=== PATIENT | female | born 1955 | race Two or more races ===

== ENCOUNTER 2024-07-20 03:52 | Inpatient (IN) | payer OTHER, MEDICAID, MEDICARE, SELFPAY ==
[2024-07-20] VITALS (8 sets, daily range): BP systolic 100–180; BP diastolic 51–83; PULSE 94–117; RESP 16–26; TEMP -12.4–37.3; O2SAT 93–98; BMI 29.6
--- NOTE | 2024-07-20 04:09 | XR_ITS ---
Examination: CT abdomen and pelvis without contrast. Coronal 3-D reconstructions. Sagittal 2-D reconstructions. Date and time of exam:July 20, 2024 0431 hrs. Indications: Abdominal pain and nausea beginning 3 days ago CTDI: vol (mGy): 8.28 DLP: (mGycm): 431 Technique: Axial images of the abdomen have been obtained, 3 mm slice thickness Intravenous contrast material has not been administered. Low dose protocols were performed. One or more of the following dose reduction techniques were used; automated exposure control, adjustment of the mA and/or KV according to patient size, use of iterative reconstruction technique. Findings: Mildly dilated bronchi in the lower lung zones Liver is nodular in contour with fatty infiltration Absent gallbladder Spleen not enlarged Portosystemic collateral vessels medial to the spleen Suspicious for esophageal varices Small retrocardiac gastric hernia No pancreatic mass No hydronephrosis Abdominal aortic calcification no aneurysmal dilatation Abundant stool in the right colon Normal appendix No bowel obstruction Lumbar fusion L3-S1 No pelvic mass Impression: Cirrhosis Suspicious for esophageal varices
--- NOTE | 2024-07-20 04:10 | EDRME_ITS ---
<Statement entered by Ava Lopez MD - 07/20/24 19:44> As co-signing physician, I was present and available for consult prn. I concur with the plan and care as documented by the midlevel provider. Rapid Medical Screening Exam RME Arrival date/time: 07/20/24 03:52 69-year-old female with past medical history of HTN, goh-ecelegv-vstoalkmg diabetes, gastritis, chronic back pain, migraines, and coronary artery disease presents emergency department complaining of lower abdominal pain with nausea and vomiting that started 3 days ago. Chief Complaint: Abdominal Pain Time Seen by Provider: 07/20/24 04:08 Vital signs: Vital Signs Temperature 99.1 F 07/20/24 04:03 Pulse Rate 108 H 07/20/24 04:03 Respiratory Rate 97 H 07/20/24 04:03 Blood Pressure 180/83 H 07/20/24 04:03 Pulse Oximetry (%) 97 07/20/24 04:03 Oxygen Delivery Method Room Air 07/20/24 04:03 Vital signs reviewed by provider: Yes
[2024-07-20] MEDS: ONDANSETRON ODT 4 MG TABRAP PO (04:20)
[2024-07-20 04:38] LABS: Collection Type, Urine Clean Catch
[2024-07-20 05:08] LABS: Bilirubin,Urine Negative (Negative); Blood,Urine Negative (Negative); Clarity,Urine Clear (Clear/Hazy); Color,Urine Yellow (Lt Yel-Yel); Culture Indicated,Urine Not Indicated; Glucose, Urine 3+ (Negative); Ketones,Urine Negative (Negative); Leukocyte Esterase,Urine Negative (Negative); Nitrite,Urine Negative (Negative); PH,Urine 6.5 (5.0-7.0); Protein,Urine Trace (Neg - Trace); RBC,Urine 13 /hpf (0-3); Specific Gravity,Urine 1.026 (1.001-1.035); Squamous Epithelial Cell,Urine 1 /hpf (0-5); WBC,Urine 1 /hpf (0-5)
[2024-07-20 05:19] LABS: Basophils # (Auto) 0.1 Thou/mm3 (0.0-0.2); Basophils % (Auto) 0 % (0-2.5); Eosinophils % (Auto) 0 % (0-10); Hemoglobin 10.2 g/dL (12.0-16.0); Immature Granulocytes % (Auto) 0 % (0-0); Immature Granulocytes Auto 0.12 Thou/mm3 (0.00-0.00); Lymphocytes # (Auto) 3.4 Thou/mm3 (1.0-4.8); Lymphocytes % (Auto) 12 % (10-50); Mean Corpuscular HGB Conc 31.9 g/dl (31.0-37.0); Mean Corpuscular Volume 94 fL (80-100); Monocytes # (Auto) 2.1 Thou/mm3 (0.0-0.8); Monocytes % (Auto) 8 % (0-12); Neutrophils % (Auto) 79 % (37-80); Nucleated Red Blood Cell % 0 /100 WBC (0); Platelet Count 227 Thou/mm3 (140-440); RDW Standard Deviation 57.1 fL (36.4-46.3); White Blood Count 27.7 Thou/mm3 (3.6-11.0)
--- NOTE | 2024-07-20 05:27 | PRELIM_ITS ---
CT scan of the abdomen and pelvis without intravenous contrast (axial sections with sagittal and ingris nal reformats). July 20, 2024 at 0431 hoursClinical History: Abdominal pain.Comparison: No prior study is available for comparison.Findings:Patchy air-trapping in bilateral lung bases. Small gastric hiatal hernia. Status post cholecystectomy. The liver contour is nodular. The spleen, adrenal glands and pancreas are unremarkable. The kidneys are normal. No urinary tract stone or obstruction is iden tified. The urinary bladder is decompressed, limiting evaluation. There is no adnexal cyst or mass. B owel caliber is normal. The appendix is normal, best seen on image 143. The aortic atherosclerosis wi thout aneurysm. Postoperative changes in the lumbar spine. No acute osseous process. Impression: 1. P ulmonary emphysema.2. Suspect hepatic cirrhosis.3. No acute process of the abdomen or pelvis on this noncontrast exam. Report Electronically Signed By: Avel May 07/20/2024 5:27:28 AM [EST]
[2024-07-20 05:32] LABS: Alanine Aminotransferase 74 U/L (10-49); Albumin, Serum 3.9 gm/dL (3.4-4.8); Albumin/Globulin Ratio 1.7 (1.2-2.2); Alkaline Phosphatase 211 U/L (46-116); Anion Gap 7 (7-16); Aspartate Amino Transferase 93 U/L (0-34); BUN/Creatinine Ratio 27 Ratio (12-20); Bilirubin,Total 0.8 mg/dL (0.3-1.2); Blood Urea Nitrogen 19 mg/dL (9-23); Calcium 8.9 mg/dL (8.3-10.6); Carbon Dioxide 24.4 mMol/L (20.0-31.0); Chloride 107 mMol/L (98-107); Creatinine (Component) 0.7 mg/dL (0.6-1.3); Estimated Creatinine Clearance 70.2 mL/min (>60); Globulin 2.3 gm/dL (2.3-3.5); Glucose 161 mg/dL (74-106); Lipase 62 U/L (12-53); Osmolality,Calculated 280 (275-295); Potassium 3.9 mMol/L (3.4-5.1); Sodium 138 mMol/L (136-145); Total Protein 6.2 gm/dL (5.7-8.2); Troponin I < 0.020 ng/mL (0.0-0.045); eGFR > 60 See Note
[2024-07-20 05:39] LABS: B-Type Natriuretic Peptide 96 pg/mL (0-100)
[2024-07-20] MEDS: SODIUM CHLORIDE 0.9% 1000 ML 1,000 ML 999 ML IV (05:52)
--- NOTE | 2024-07-20 06:07 | PC.NURSE ---
Pt came to er with for c/o abd pain x 3 days, also c/o n/v, pt mentioned that maybe she is constipated.
--- NOTE | 2024-07-20 06:41 | XR_ITS ---
Examination: AP chest single view Technique one AP portable supine chest single view Exam date and time: July 20, 2024 0729 hrs. Comparison April 03, 2024 Indications: Shortness of breath today. Findings: Mild prominence left ventricle Moderate vascular congestion. No lobar pneumonia Impression: Moderate vascular congestion No lobar pneumonia No asia pulmonary edema
--- NOTE | 2024-07-20 06:45 | PC.NURSE ---
0644,called sepsis alert per JONNY silvestre.
[2024-07-20] MEDS: ONDANSETRON INJ 2 MG/ML INJ 2 ML 4 MG IV (06:49)
[2024-07-20] MEDS: HYDROmorphone INJ 2 MG/ML VIAL 1 MG IVP ×2 (06:49→11:00)
[2024-07-20] MEDS: PIPER/TAZO INJ 3.375 GM in SODIUM CHLORIDE 0.9% (P) 50 ML IV (06:50)
[2024-07-20 06:57] LABS: Lactate (Lactic Acid) 3.1 mMol/L (0.4-2.0)
--- NOTE | 2024-07-20 07:12 | PC.NURSE ---
Received report from Hector FULLER and assumed care of patient. Patient actively vomiting and ER provider informed. Meds ordered,
[2024-07-20] MEDS: METOCLOPRAMIDE INJ 5 MG/ML VIAL 2 ML 10 MG IVP (07:23)
[2024-07-20 07:26] LABS: Amylase 57 U/L (30-118); C-Reactive Protein 0.5 mg/dL (0.0-0.9); Magnesium 1.8 mg/dL (1.6-2.6); Procalcitonin 0.28 ng/ml (0.0-0.49)
[2024-07-20 07:45] LABS: Sed Rate (ESR) 11 mm/hr (0-30)
[2024-07-20 09:53] LABS: Reflex Lactate? Y
--- NOTE | 2024-07-20 10:43 | PC.NURSE ---
Patient states abd/lower pelvic pain 04/16. Informed ER provider and received verbal order for 1mg Hydromorphone.
[2024-07-20 10:49] LABS: Lactic Acid, 3 HR 3.7 mMol/L (0.4-2.0)
--- NOTE | 2024-07-20 11:02 | PC.NURSE ---
Patient PO2 dropped to 90% after falling asleep. Placed patient on 3L nasal canula
--- NOTE | 2024-07-20 12:03 | PC.NURSE ---
Informed by ROLLER MAN that blood was noted in stool while changing patient's brief. ER provider informed.
[2024-07-20] MEDS: metroNIDAZOLE 250 MG TABLET 500 MG PO ×2 (14:02→21:08)
[2024-07-20] MEDS: cefTRIAXone/D5w 1gm IV premix 50 ML IV (14:02)
[2024-07-20 14:35] LABS: Lactate (Lactic Acid) 3.4 mMol/L (0.4-2.0)
--- NOTE | 2024-07-20 14:41 | ESHP_ITS ---
<Statement entered by Colleen Vera MD - 08/06/24 09:26> I reviewed above note and agree with findings and plans. I have also personally examined the patient with medicine team and went over assessment and plan with medical team including corporate strategy intern and resident physician. Documentation for date of: 07/20/24 HPI History of Present Illness History of present illness: Shayy is a 69 F w. HX of HTN, DM, Gastroparesis, chronic anemia who presents with 3 days of worsening suprapubic abdominal pain. She reports constipation/N/V, however, a slightly improved appetite. She reports her stool being red while in the ED. She was hospitalized in April for anemia. She states they couldnt' find out what was wrong with her. She reports losing 45 lbs since then and hardly eating anything, mostly just crackers. She also has moderate-severe Aortic Stenosis and states that she will have a possible TAVR in September due to her SOB with her ADL's. In the ED she was hypotensive at 106/56, tachycardic at 117 otherwise normal vitals on RA. Her UA(-), on CT AP no GB, no ascites showed cirrhosis, and possible esophageal varices, no PNA on CXR, WBC 27 HGb 10 otherwise normal electrolytes, kidney function. Troponin negative. PMH: As stated above Meds: Metformin, Jardiance, metoprolol Allergies: morphine->hypotension PSH: x4, hysterectomy, lumbar fusion L3-S1 Social: Denies alcohol, drug, or tobacco use Review of systems: Constitutional: Denies fever or chills, reports 45 lb weight loss since Apr. HEENT: No neck stiffness Neuro: Reports headaches, blurry vision, numbness of whole body CV: Denies chest pain Pulm: Reports SOB : Denies dysuria GI: Reports N/V Exam Vital Signs Temp Pulse Resp BP Pulse Ox O2 Del Method O2 Flow Rate 97.2 F 107 H 18 108/56 L 97 Nasal Cannula 2 07/20/24 13:30 07/20/24 13:30 07/20/24 13:30 07/20/24 13:30 07/20/24 13:30 07/20/24 13:30 07/20/24 13:30 Narrative Exam General: Well appearing, well nourished, in no distress HEENT: Normocephalic, atraumatic, conjunctiva clear, sclera non-icteric, EOM intact Heart: Regular rate and rhythm, systolic ejection murmur Lungs: Clear to auscultation, no wheezes Abdomen: suprapubic tenderness, soft, non tender. Back: Spine normal without deformity or tenderness, no CVA tenderness, well healed incision of L3-S1 Extremities: No amputations or deformities, cyanosis, edema or varicosities, peripheral pulses intact Neurologic:Moves all extremities spontaneously, no focal neuro deficits, A&Ox3 Psychiatric: Cooperative, normal mood and affect. Results: Labs 07/20/24 14:18 07/20/24 14:18 Labs: Short CBC 07/20/24 Range/Units 05:00 WBC 27.7 H (3.6-11.0) Thou/mm3 Hgb 10.2 L (12.0-16.0) g/dL Hct 32.0 L (36.0-46.0) % Plt Count 227 (140-440) Thou/mm3 BMP 07/20/24 05:00 Sodium 138 Potassium 3.9 Chloride 107 Carbon Dioxide 24.4 BUN 19 Creatinine 0.7 Glucose 161 H Calcium 8.9 Cardiac Enzymes 07/20/24 Range/Units 05:00 Troponin I < 0.020 (0.0-0.045) ng/mL Liver Function 07/20/24 Range/Units 05:00 Total Bilirubin 0.8 (0.3-1.2) mg/dL AST 93 H (0-34) U/L ALT 74 H (10-49) U/L Alkaline Phosphatase 211 H (46-116) U/L Albumin 3.9 (3.4-4.8) gm/dL Urine 07/20/24 Range/Units 04:34 Urine Color Yellow (Lt Yel-Yel) Urine Clarity Clear (Clear/Hazy) Urine pH 6.5 (5.0-7.0) Ur Specific [place] 1.026 (1.001-1.035) Urine Protein Trace (Neg - Trace) Urine Glucose (UA) 3+ A (Negative) Quality Measures Quality Measures VTE prophylaxis Advance care planning discussed with:: patient Medications Home Medications and Allergies Home Medications ?Medication ?Instructions ?Recorded ?Confirmed ?Type empagliflozin 25 mg tablet 25 mg PO QDAY 11/17/22 05/06/24 History (Jardiance) semaglutide 0.25 mg or 0.5 mg (2 0.5 mg subcut QWEEK 11/17/22 05/06/24 History mg/1.5 mL) subcutaneous pen injector (Ozempic) metformin 1,000 mg tablet 1,000 mg PO BID 07/10/23 04/04/24 History albuterol sulfate 90 mcg/actuation 1 inh inhalation QID PRN Shortness 08/28/23 05/06/24 History aerosol inhaler Of Breath famotidine 40 mg tablet 40 mg PO QDAY 08/28/23 05/06/24 History losartan 25 mg tablet 25 mg PO QDAY 08/28/23 04/04/24 History metoprolol succinate 50 mg 50 mg PO QDAY 08/28/23 05/06/24 History tablet,extended release 24 hr sumatriptan succinate 25 mg tablet 25 mg PO Q2H PRN Migraine Headache 08/28/23 04/04/24 History calcium 600 mg (as carbonate)-vit tab PO 05/06/24 History D3 10 mcg (400 unit) chewable tablet (Calcium 600 with Vitamin D3) evolocumab 140 mg/mL subcutaneous 140 mg subcut 05/06/24 History syringe (Repatha Syringe) gabapentin 300 mg capsule 300 mg PO TID 05/06/24 05/06/24 History sertraline 25 mg tablet 25 mg PO QDAY 05/06/24 05/06/24 History tramadol 50 mg tablet 50 mg PO BID PRN Pain (Scale Score 05/06/24 05/06/24 History 4-6) Allergies Allergy/AdvReac Type Severity Reaction Status Date / Time morphine Allergy Severe SOB, LOWER Verified 04/03/24 20:51 BP Visit Medications Acetaminophen (Acetaminophen 325 Mg Tablet) 650 mg PO Q6H PRN PRN Reason: Fever >100.3 or pain Stop: 08/19/24 10:16 Ceftriaxone Sodium/Dextrose (Rocephin/D5w 1gm Iv Premix) 50 mls @ 100 mls/hr IV QDAY JULIENNE Stop: 07/27/24 13:09 Last Admin: 07/20/24 14:02 Dose: 100 mls/hr Lactulose (Lactulose Syrup 20 Gm/30 Ml Udc) 10 gm PO QDAY PRN; Protocol PRN Reason: constipation Stop: 08/20/24 08:59 Metronidazole (Metronidazole 250 Mg Tablet) 500 mg PO BID JULIENNE Stop: 07/27/24 13:14 Last Admin: 07/20/24 14:02 Dose: 500 mg Ondansetron HCl (Ondansetron Inj 2 Mg/Ml Inj 2 Ml) 4 mg IV Q6H PRN; Protocol PRN Reason: NAUSEA OR VOMITING Stop: 08/19/24 10:16 Discontinued Medications Hydromorphone HCl (Hydromorphone Inj 2 Mg/Ml Vial) 1 mg IVP X1 ONE Stop: 07/20/24 06:40 Last Admin: 07/20/24 06:49 Dose: 1 mg Hydromorphone HCl (Hydromorphone Inj 2 Mg/Ml Vial) 1 mg IVP X1 ONE Stop: 07/20/24 10:49 Last Admin: 07/20/24 11:00 Dose: 1 mg Sodium Chloride (Ns) 1,000 mls @ 999 mls/hr IV .Q1H1M ONE Stop: 07/20/24 06:46 Last Infusion: 07/20/24 06:53 Dose: Infused Piperacillin Sod/Tazobactam (Sod 3.375 gm/ Sodium Chloride) 50 mls @ 100 mls/hr IV X1 ONE Stop: 07/20/24 07:08 Last Infusion: 07/20/24 07:25 Dose: Infused Lactated Ringer's (Lactated Ringers) 500 mls @ 999 mls/hr IV .Q31M ONE Stop: 07/20/24 11:30 Last Admin: 07/20/24 13:46 Dose: Not Given Sodium Chloride (Ns) 500 mls @ 999 mls/hr IV .Q31M ONE Stop: 07/20/24 10:43 Last Admin: 07/20/24 13:46 Dose: Not Given Metoclopramide HCl (Metoclopramide Inj 5 Mg/Ml Vial 2 Ml) 10 mg IVP X1 ONE; Protocol Stop: 07/20/24 07:12 Last Admin: 07/20/24 07:23 Dose: 10 mg Ondansetron HCl (Ondansetron Odt 4 Mg Tabrap) 4 mg PO X1 ONE; Protocol Stop: 07/20/24 04:10 Last Admin: 07/20/24 04:20 Dose: 4 mg Ondansetron HCl (Ondansetron Inj 2 Mg/Ml Inj 2 Ml) 4 mg IV X1 ONE; Protocol Stop: 07/20/24 07:01 Last Admin: 07/20/24 06:49 Dose: 4 mg Assessment & Plan Plan Shayy is a 69 F w. HX of HTN, DM, Gastroparesis, chronic anemia who presents with 3 days of worsening suprapubic abdominal pain. CT AP showed cirrhosis and possible esophageal varices in setting of anemia. Dr. Leyva was consulted and requested admit for endoscopy and further workup. #Sepsis 2/2 suspected colitits #Hypotension #Tachycardia WBC 27, Tachycardic 117, Hypotensive 107/57 UA(-), No GB on CT, No ascites, No PNA on CXR, suprapubic pain on exam Although colitis wasn't seen on CT, patient has suspected blood in stool with abdominal pain Zosyn given in ED -Ceftriaxone 1gm QD IV -Flagyl 500mg BID -IVF, total of 3L given -Bowel rest #Acute on chronic normocytic anemia Hgb 10 Hx of previous EGD which showed gastritis, no active bleeding; colonscopy was limited, unable to advance scope -Dr. Leyva(gastroenterology) consulted, appreciate recommendations -Iron panel/ferritin -occult stool -Pantoprazole 40mg QD -NPO->pending EGD -Hold blood thinners #Liver Cirrhosis Cirrhosis seen on CT AP, no previous hx Denies Etoh use, no ascites on CT, Hx of elevated cholesterol and LDL in 2022, most recent in may was normal Albumin 3.6, Hgb 9.2, Platelet 192, bilirubin 0.9, AST 74, ALT 67, Alk phos 179 -PT/INR -Hepatitis panel #Hx of Gastroparesis Patient states that she has Gastroparesis. No home meds to indicate -Will advance diet as tolerated after EGD -Zofran/Reglan for N/V #Hx of DM type II A1C 05/30 4.8. Reports that she is on Metformin and Jardiance -pending med rec -SSI #Hx of Hypertension Hypotensive since admission. Reports home dose of metoprolol 50mg -continue to monitor #Hx of depression -Sertraline 25mg PO daily #Migraines -Sumatriptan at home Health Maintenance: Disp: Med/tele FEN:NPO GI:Protonix 40mg QD DVT: SCDs Lines: PIV Code: Full The patient's plan was discussed with attending Dr. Vera and senior resident Dr. Bing Perez, PGY1 Internal Medicine Senior resident attestation: Patient evaluated and examined at the bedside, plan of care discussed with rest of the team including my attending physician, except as noted. #Sepsis, unknown etiology: Noted sinus tachycardia, heart rate sustaining 110s, leukocytosis, WBC count uptrending. Follow blood cultures, continue antibiotics, #Concern for colitis: Patient complaining of lower abdominal quadrant pain, CT not reported as colitis, but abundant stool noted throughout the colon, possible colitis given clinical picture. #Acute anemia: Initial hemoglobin 10, repeat H&H 9.2 #Decompensated liver cirrhosis with varices: GI consult Dr. Leyva was added, possible EGD to evaluate for varices later today. #Concern for GI bleed: Stool occult blood ordered, type and cross. Bing PGY2
[2024-07-20 14:42] LABS: Basophils # (Auto) 0.1 Thou/mm3 (0.0-0.2); Basophils % (Auto) 0 % (0-2.5); Eosinophils % (Auto) 0 % (0-10); Hematocrit 28.7 % (36.0-46.0); Hemoglobin 9.2 g/dL (12.0-16.0); Immature Granulocytes % (Auto) 1 % (0-0); Immature Granulocytes Auto 0.23 Thou/mm3 (0.00-0.00); Lymphocytes # (Auto) 2.1 Thou/mm3 (1.0-4.8); Lymphocytes % (Auto) 7 % (10-50); Mean Corpuscular HGB Conc 32.1 g/dl (31.0-37.0); Mean Corpuscular Hemoglobin 30.3 pg (25.0-35.0); Mean Corpuscular Volume 94 fL (80-100); Monocytes # (Auto) 2.3 Thou/mm3 (0.0-0.8); Monocytes % (Auto) 7 % (0-12); Neutrophils % (Auto) 86 % (37-80); Nucleated Red Blood Cell % 0 /100 WBC (0); Platelet Count 192 Thou/mm3 (140-440); RDW Standard Deviation 58.7 fL (36.4-46.3); Red Blood Count 3.04 Miln/mm3 (4.00-5.20); White Blood Count 32.8 Thou/mm3 (3.6-11.0)
[2024-07-20 15:11] LABS: Alanine Aminotransferase 67 U/L (10-49); Albumin, Serum 3.6 gm/dL (3.4-4.8); Albumin/Globulin Ratio 1.7 (1.2-2.2); Alkaline Phosphatase 179 U/L (46-116); Anion Gap 8 (7-16); Aspartate Amino Transferase 74 U/L (0-34); BUN/Creatinine Ratio 33 Ratio (12-20); Bilirubin,Total 0.9 mg/dL (0.3-1.2); Blood Urea Nitrogen 23 mg/dL (9-23); Calcium 8.4 mg/dL (8.3-10.6); Calcium (Corrected) 8.7 mg/dL (8.5-10.1); Carbon Dioxide 22.2 mMol/L (20.0-31.0); Chloride 108 mMol/L (98-107); Creatinine (Component) 0.7 mg/dL (0.6-1.3); Estimated Creatinine Clearance 70.2 mL/min (>60); Globulin 2.1 gm/dL (2.3-3.5); Glucose 167 mg/dL (74-106); Osmolality,Calculated 283 (275-295); Potassium 4.1 mMol/L (3.4-5.1); Sodium 138 mMol/L (136-145); Total Protein 5.7 gm/dL (5.7-8.2); eGFR > 60 See Note
[2024-07-20] MEDS: PANTOPRAZOLE INJ 40 MG VIAL IV (15:50)
--- NOTE | 2024-07-20 17:07 | PC.NURSE ---
Patients will bring patients medications tomorrow.
[2024-07-20 17:33] LABS: Reflex Lactate? Y
[2024-07-20 18:04] LABS: Lactic Acid, 3 HR 1.4 mMol/L (0.4-2.0)
--- NOTE | 2024-07-20 19:11 | ESCONSULT_ITS ---
HPI Data of Consult Requesting Physician: Colleen Vera MD Primary Care Provider: Parvez Cerna MD Consult Narrative Reason for consult: Worsening pain suprapubic, leukocytosis, anemia History of present illness: 69 years old female evaluated at the request of the ER physician for pain abdomen leukocytosis Patient is suprapubic abdominal pain and discomfort and initial WBC count was 27.7 with a hemoglobin hematocrit of 10.[address] scan of the abdomen pelvis done without contrast showed absent gallbladder and cirrhosis of the liver Patient has a chronic anemia and had extensive GI workup done in March of this year when she underwent on 04/06/2020 for upper endoscopy which showed hiatal hernia gastritis and esophagitis Colonoscopy was incomplete as she has a ventral hernia and it was only got up to 40 cm from the anal verge in the region of the sigmoid and descending colon It was followed by air-contrast barium enema on 04/09/2024 no abnormalities found throughout the colon and no stricture Patient has underlying hypertension diabetes mellitus cirrhosis of the liver of unknown etiology as well as moderate to severe aortic stenosis for which she is scheduled for some sort of edema procedure in September of this year cc:: cc: Colleen Vera MD Review of Systems Review of Systems Systems Reviewed: All systems reviewed, normal except as documented Past Medical History Surgical History OTHER SURGICAL HX: Asthma history of present illness Meds Home Medications and Allergies Home Medications ?Medication ?Instructions ?Recorded ?Confirmed ?Type empagliflozin 25 mg tablet 25 mg PO QDAY 11/17/22 05/06/24 History (Jardiance) semaglutide 0.25 mg or 0.5 mg (2 0.5 mg subcut QWEEK 11/17/22 05/06/24 History mg/1.5 mL) subcutaneous pen injector (Ozempic) metformin 1,000 mg tablet 1,000 mg PO BID 07/10/23 04/04/24 History albuterol sulfate 90 mcg/actuation 1 inh inhalation QID PRN Shortness 08/28/23 05/06/24 History aerosol inhaler Of Breath famotidine 40 mg tablet 40 mg PO QDAY 08/28/23 05/06/24 History losartan 25 mg tablet 25 mg PO QDAY 08/28/23 04/04/24 History metoprolol succinate 50 mg 50 mg PO QDAY 08/28/23 07/20/24 History tablet,extended release 24 hr sumatriptan succinate 25 mg tablet 25 mg PO Q2H PRN Migraine Headache 08/28/23 04/04/24 History calcium 600 mg (as carbonate)-vit tab PO 05/06/24 History D3 10 mcg (400 unit) chewable tablet (Calcium 600 with Vitamin D3) evolocumab 140 mg/mL subcutaneous 140 mg subcut 05/06/24 History syringe (Repatha Syringe) gabapentin 300 mg capsule 300 mg PO TID 05/06/24 05/06/24 History sertraline 25 mg tablet 25 mg PO QDAY 05/06/24 05/06/24 History tramadol 50 mg tablet 50 mg PO BID PRN Pain (Scale Score 05/06/24 05/06/24 History 4-6) Allergies Allergy/AdvReac Type Severity Reaction Status Date / Time morphine Allergy Severe SOB, LOWER Verified 04/03/24 20:51 BP Exam Vital Signs Temp Pulse Resp BP Pulse Ox O2 Del Method O2 Flow Rate 97.7 F 98 18 100/58 L 97 Nasal Cannula 2 07/20/24 16:00 07/20/24 16:00 07/20/24 16:00 07/20/24 16:00 07/20/24 16:00 07/20/24 16:00 07/20/24 16:00 Constitutional Comments: Chronically ill-appearing Routine Respiratory Exam Comments: Normal to auscultation Routine Abdominal Exam Comments: Soft nontender Results Labs 07/20/24 14:18 07/20/24 14:18 Labs: Short CBC 07/20/24 07/20/24 Range/Units 05:00 14:18 WBC 27.7 H 32.8 H D (3.6-11.0) Thou/mm3 Hgb 10.2 L 9.2 L (12.0-16.0) g/dL Hct 32.0 L 28.7 L (36.0-46.0) % Plt Count 227 192 D (140-440) Thou/mm3 BMP 07/20/24 07/20/24 05:00 14:18 Sodium 138 138 Potassium 3.9 4.1 Chloride 107 108 H Carbon Dioxide 24.4 22.2 BUN 19 23 Creatinine 0.7 0.7 Glucose 161 H 167 H Calcium 8.9 8.4 Cardiac Enzymes 12/14/24 Range/Units 05:00 Troponin I < 0.020 (0.0-0.045) ng/mL Liver Function 07/20/24 07/20/24 Range/Units 05:00 14:18 Total Bilirubin 0.8 0.9 (0.3-1.2) mg/dL AST 93 H 74 H (0-34) U/L ALT 74 H 67 H (10-49) U/L Alkaline Phosphatase 211 H 179 H D (46-116) U/L Albumin 3.9 3.6 (3.4-4.8) gm/dL Urine 07/20/24 Range/Units 04:34 Urine Color Yellow (Lt Yel-Yel) Urine Clarity Clear (Clear/Hazy) Urine pH 6.5 (5.0-7.0) Ur Specific [place] 1.026 (1.001-1.035) Urine Protein Trace (Neg - Trace) Urine Glucose (UA) 3+ A (Negative) Assessment and Plan Additional Assessment & Plan Additional Plan: # Cirrhosis liver of uncertain etiology may be cryptogenic or LIC[place] cirrhosis but complete workup for the chronic active hepatitis ordered by me # Chronic anemia with full workup done in April of this year no further evaluation necessary via upper endoscopy or colonoscopy # Leukocytosis of uncertain etiology patient on broad-spectrum antibiotics at the moment # Moderate to severe aortic stenosis # Diabetes mellitus type 2 # Essential hypertension the patient presented this time with hypotension Will follow the patient
[2024-07-20 19:56] LABS: Iron 14 mcg/dL (50-170); Percent Iron Saturation 3 % (20-55); Total Iron Binding Capacity 376 mcg/dL (250-425); Unsaturated Iron Binding 362 (225-295)
[2024-07-21] VITALS (9 sets, daily range): BP systolic 99–111; BP diastolic 52–60; PULSE 80–99; RESP 16–20; TEMP 36.2–37.1; O2SAT 97–99
[2024-07-21 05:53] LABS: Basophils # (Auto) 0.1 Thou/mm3 (0.0-0.2); Basophils % (Auto) 0 % (0-2.5); Eosinophils # (Auto) 0.1 Thou/mm3 (0.0-0.5); Eosinophils % (Auto) 1 % (0-10); Hematocrit 25.7 % (36.0-46.0); Immature Granulocytes % (Auto) 1 % (0-0); Immature Granulocytes Auto 0.13 Thou/mm3 (0.00-0.00); Lymphocytes # (Auto) 2.8 Thou/mm3 (1.0-4.8); Lymphocytes % (Auto) 14 % (10-50); Mean Corpuscular HGB Conc 31.1 g/dl (31.0-37.0); Mean Corpuscular Hemoglobin 29.6 pg (25.0-35.0); Mean Corpuscular Volume 95 fL (80-100); Monocytes # (Auto) 1.2 Thou/mm3 (0.0-0.8); Monocytes % (Auto) 6 % (0-12); Neutrophils # (Auto) 15.2 Thou/mm3 (1.8-7.7); Neutrophils % (Auto) 78 % (37-80); Nucleated Red Blood Cell % 0 /100 WBC (0); Platelet Count 147 Thou/mm3 (140-440); RDW Standard Deviation 58.8 fL (36.4-46.3); White Blood Count 19.4 Thou/mm3 (3.6-11.0)
[2024-07-21 06:15] LABS: Alanine Aminotransferase 57 U/L (10-49); Albumin, Serum 3.3 gm/dL (3.4-4.8); Albumin/Globulin Ratio 1.5 (1.2-2.2); Alkaline Phosphatase 166 U/L (46-116); Anion Gap 7 (7-16); Aspartate Amino Transferase 47 U/L (0-34); BUN/Creatinine Ratio 32 Ratio (12-20); Bilirubin,Total 0.6 mg/dL (0.3-1.2); Blood Urea Nitrogen 19 mg/dL (9-23); Calcium 8.3 mg/dL (8.3-10.6); Calcium (Corrected) 8.9 mg/dL (8.5-10.1); Carbon Dioxide 25.5 mMol/L (20.0-31.0); Chloride 108 mMol/L (98-107); Creatinine (Component) 0.6 mg/dL (0.6-1.3); Estimated Creatinine Clearance 81.9 mL/min (>60); Globulin 2.2 gm/dL (2.3-3.5); Glucose 120 mg/dL (74-106); Magnesium 2.1 mg/dL (1.6-2.6); Osmolality,Calculated 282 (275-295); Phosphorous 3.4 mg/dL (2.4-5.1); Potassium 4.1 mMol/L (3.4-5.1); Sodium 140 mMol/L (136-145); Total Protein 5.5 gm/dL (5.7-8.2); eGFR > 60 See Note
[2024-07-21 06:19] LABS: Ferritin 41 ng/mL (7.3-270.7); Iron 19 mcg/dL (50-170); Percent Iron Saturation 5 % (20-55); Total Iron Binding Capacity 363 mcg/dL (250-425); Unsaturated Iron Binding 344 (225-295)
[2024-07-21] MEDS: PANTOPRAZOLE INJ 40 MG VIAL IV (09:27)
[2024-07-21] MEDS: metroNIDAZOLE 250 MG TABLET 500 MG PO ×2 (09:29→20:05)
[2024-07-21] MEDS: cefTRIAXone/D5w 1gm IV premix 50 ML IV (09:30)
[2024-07-21 11:26] LABS: INR 1.2 (0.9-1.3); Partial Thromboplastin Time 27.1 Seconds (22.0-36.0); Prothrombin Time 12.6 Seconds (9.0-12.2)
--- NOTE | 2024-07-21 11:36 | PC.SS ---
Shayy Lincoln is 69-year-old female admitted to Med-Surg for Sepsis. SS conducted bedside contact with the patient to complete initial assessment and to discuss discharge planning. Patient confirmed demographic information. Patient identifies her Luis M Lincoln [phone] as her surrogate decision maker. Patient resides at home with her . Pt states she has been unable to complete all ADL?s independently; pts has been helping her with supervision due to recent fall. Pts PCP is Dr. Parvez Cerna and her pharmacy of choice is [facility] [address]. The pt?s plan is to DC with Home Health due to her recent decline in mobility. There is no preference for Home Health. Pts will provide transportation upon DC. No further intervention required at this time, social work instructor would be available to address any further concerns. DC Plan: Home w/ HH Contact: Luis M Lincoln [phone] PCP: Parvez Cerna (last visit 07/19/24)
--- NOTE | 2024-07-21 11:56 | ESPR_ITS ---
<Statement entered by Colleen Vera MD - 08/06/24 09:27> I reviewed above note and agree with findings and plans. I have also personally examined the patient with medicine team and went over assessment and plan with medical team including internet sales director and resident physician. Documentation for date of: 07/21/24 Subjective Subjective Interval history: No acute events overnight. She denies N/V. No bowel movement overnight. She reports her abdomen feels sore but not sharp pain. She states that she tried to get oxygen but didn't qualify before because she had normal O2 saturation while sitting even though she was hypoxic with activity. Exam Vital Signs Temp Pulse Resp BP Pulse Ox O2 Del Method O2 Flow Rate 97.1 F 99 16 99/52 L 97 Nasal Cannula 2 07/21/24 07:38 07/21/24 08:00 07/21/24 07:38 07/21/24 07:38 07/21/24 07:38 07/21/24 07:38 07/21/24 07:38 Narrative Exam General: Well appearing, well nourished, in no distress HEENT: Normocephalic, atraumatic, conjunctiva clear, sclera non-icteric, EOM intact Heart: Regular rate and rhythm, systolic ejection murmur Lungs: Clear to auscultation, no wheezes Abdomen: suprapubic tenderness, soft, non tender. Extremities: No amputations or deformities, cyanosis, edema or varicosities, peripheral pulses intact Neurologic:Moves all extremities spontaneously, no focal neuro deficits, A&Ox3 Psychiatric: Cooperative, normal mood and affect. Objective Labs 07/22/24 05:32 07/22/24 05:32 Labs: Laboratory Results - last 24 hr 07/20/24 07/20/24 07/21/24 14:18 17:50 05:20 WBC 32.8 H D 19.4 H D RBC 3.04 L 2.70 L Hgb 9.2 L 8.0 L Hct 28.7 L 25.7 L MCV 94 95 MCH 30.3 29.6 MCHC 32.1 31.1 RDW Std Deviation 58.7 H 58.8 H Plt Count 192 D 147 D Neut % (Auto) 86 H 78 Lymph % (Auto) 7 L 14 Green % (Auto) 7 6 Eos % (Auto) 0 1 Baso % (Auto) 0 0 Neut # (Auto) 28.0 H 15.2 H Lymph # (Auto) 2.1 2.8 Green # (Auto) 2.3 H 1.2 H Eos # (Auto) 0.0 0.1 Baso # (Auto) 0.1 0.1 Immature Gran # (Auto) 0.23 H 0.13 H Absolute Nucleated RBC 0.00 0.00 Immature Gran % 1 H 1 H Nucleated RBC % 0 0 PT 12.6 H INR 1.2 APTT 27.1 Sodium 138 140 Potassium 4.1 4.1 Chloride 108 H 108 H Carbon Dioxide 22.2 25.5 Anion Gap 8 7 BUN 23 19 Creatinine 0.7 0.6 Estim Creat Clear Calc 70.2 81.9 eGFR > 60 > 60 BUN/Creatinine Ratio 33 H 32 H Glucose 167 H 120 H Calculated Osmolality 283 282 Lactic Acid 3.4 H 1.4 Calcium 8.4 8.3 Corrected Calcium 8.7 8.9 Phosphorus 3.4 Magnesium 2.1 Iron 14 L 19 L TIBC 376 363 Iron Saturation 3 L 5 L Unsat Iron Binding 362 H 344 H Ferritin 41 Total Bilirubin 0.9 0.6 AST 74 H 47 H ALT 67 H 57 H Alkaline Phosphatase 179 H D 166 H Total Protein 5.7 5.5 L Albumin 3.6 3.3 L Globulin 2.1 L 2.2 L Albumin/Globulin Ratio 1.7 1.5 Blood Type B Positive Antibody Screen NEGATIVE Blood Bank Wristband ID Yes Quality Measures Quality Measures VTE prophylaxis Advance care planning discussed with:: patient Assessment & Plan Assessment Current Active Medications: Generic Name Dose Route Start Last Admin Trade Name Freq PRN Reason Stop Dose Admin Acetaminophen 650 mg 07/20/24 10:17 Acetaminophen 325 Mg Tablet PO 08/19/24 10:16 Q6H PRN Fever >100.3 or pain Ceftriaxone Sodium/Dextrose 50 mls @ 100 mls/hr 07/20/24 13:10 07/21/24 09:30 Rocephin/D5w 1gm Iv Premix IV 07/27/24 13:09 100 mls/hr QDAY JULIENNE Administration Lactulose 10 gm 07/20/24 10:17 Lactulose Syrup 20 Gm/30 Ml Udc PO 08/20/24 08:59 QDAY PRN constipation Protocol Metoclopramide HCl 10 mg 07/20/24 15:18 Metoclopramide Inj 5 Mg/Ml Vial 2 Ml IVP 08/19/24 15:17 Q6HR PRN NAUSEA OR VOMITING Protocol Metronidazole 500 mg 07/20/24 13:15 07/21/24 09:29 Metronidazole 250 Mg Tablet PO 07/27/24 13:14 500 mg BID JULIENNE Administration Ondansetron HCl 4 mg 07/20/24 15:23 Ondansetron Inj 2 Mg/Ml Inj 2 Ml IV 08/19/24 10:16 Q6H PRN NAUSEA OR VOMITING Protocol Pantoprazole Sodium 40 mg 07/20/24 15:15 07/21/24 09:27 Pantoprazole Inj 40 Mg Vial IV 08/19/24 15:14 40 mg QDAY JULIENNE Administration Plan Shayy is a 69 F w. HX of HTN, DM, Gastroparesis, chronic anemia who presents with 3 days of worsening suprapubic abdominal pain. CT AP showed cirrhosis and possible esophageal varices in setting of anemia. Dr. Leyva was consulted. Full GI workup was performed in April. Dr. Leyva recommends defering endoscopy/colonoscopy at this time. Will continue to treat bacterial colitis. #Acute on chronic normocytic anemia #Iron deficiency anemia Hgb 8 Hx of previous EGD which showed gastritis, no active bleeding; colonscopy was limited, unable to advance scope, however barium enema didn't show abnormalities. +occult stool, Low iron, High TIBC -Dr. Leyva(gastroenterology) consulted, appreciate recommendations -Ferrous Sulfate 325 PO QD -Pantoprazole 40mg QD -Hold blood thinners #Sepsis 2/2 suspected colitits #Hypotension #Tachycardia WBC 27, Tachycardic 117, Hypotensive 107/57 UA(-), No GB on CT, No ascites, No PNA on CXR, suprapubic pain on exam + occult blood in stool Zosyn given in ED -Ceftriaxone 1gm QD IV -Flagyl 500mg BID -IVF, total of 3L given -CLD #Liver Cirrhosis Cirrhosis seen on CT AP, no previous hx; possibly cryptogenic or LICONA Denies Etoh use, no ascites on CT, Hx of elevated cholesterol and LDL in 2022, most recent in may was normal Albumin 3.6, Hgb 9.2, Platelet 192, bilirubin 0.9, AST 74, ALT 67, Alk phos 179 -Pending Hepatitis panel, ceruloplasmin, STEPHANIE, Alpha 1, AFP, copper, AMA #Hx of Gastroparesis Patient states that she has Gastroparesis. No home meds to indicate -Will advance diet as tolerated after EGD -Zofran/Reglan for N/V #Hx of DM type II A1C 05/30 4.8. Reports that she is on Metformin and Jardiance -pending med rec -SSI #Hx of Hypertension Hypotensive since admission. Reports home dose of metoprolol 50mg -continue to monitor #Hx of depression -Sertraline 25mg PO daily #Migraines -Sumatriptan at home Health Maintenance: Disp: Med/tele FEN:CLD GI:Protonix 40mg QD DVT: SCDs Lines: PIV Code: Full The patient's plan was discussed with attending Dr. Vera and senior resident Dr. Bing Perez, DO PGY1 Internal Medicine Senior resident attestation: Patient evaluated and examined at the bedside, plan of care discussed with rest of the team including my attending physician, except as noted. #Sepsis, unknown etiology: Noted sinus tachycardia, heart rate sustaining 110s, leukocytosis, WBC count uptrending. Follow blood cultures, continue antibiotics, #Concern for colitis: Patient complaining of lower abdominal quadrant pain, CT not reported as colitis, but abundant stool noted throughout the colon, possible colitis given clinical picture. #Acute anemia: Initial hemoglobin 10, repeat H&H 9.2 #Decompensated liver cirrhosis with varices: GI consult Dr. Leyva was added, per gastroenterology, patient had extensive workup for GI bleed a few months ago, incomplete colonoscopy due to inability to pass colonoscope passed a ventral hernia, EGD was done. Per GI, ordered labs for workup of cirrhosis. Patient is HCV positive, possible hepatitis C leading to decompensated cirrhosis. #GI bleed: Stool occult blood was positive, type and cross. Bing PGY2
[2024-07-21] MEDS: FERROUS SULF 325 MG TABLET PO (14:05)
--- NOTE | 2024-07-21 14:08 | PC.NURSE ---
Per MD orders pt ambulated around unit, 02 maintained at 95%-96% HR 105-110 pt was feeling short of breath
--- NOTE | 2024-07-21 16:10 | PC.SS ---
Rounding: on IV ABX poss DC 07/22
--- NOTE | 2024-07-21 16:13 | ESPR_ITS ---
Documentation for date of: 07/21/24 Subjective Subjective Interval history: WBC count down to 19.4 from 32.4 Hemoglobin hematocrit 8.0 and 25.7 Tolerating clear liquid diet Advance to 2 g sodium diet Exam Vital Signs Temp Pulse Resp BP Pulse Ox O2 Del Method O2 Flow Rate 97.7 F 91 16 111/60 99 Room Air 2 07/21/24 16:00 07/21/24 16:00 07/21/24 16:00 07/21/24 16:00 07/21/24 16:00 07/21/24 16:00 07/21/24 07:38 Constitutional Comments: Alert oriented Routine Respiratory Exam Comments: Normal to auscultation Routine Abdominal Exam Comments: Soft nontender Objective Labs 07/21/24 05:20 07/21/24 05:20 Labs: Laboratory Results - last 24 hr 07/20/24 07/21/24 17:50 05:20 WBC 19.4 H D RBC 2.70 L Hgb 8.0 L Hct 25.7 L MCV 95 MCH 29.6 MCHC 31.1 RDW Std Deviation 58.8 H Plt Count 147 D Neut % (Auto) 78 Lymph % (Auto) 14 [place] % (Auto) 6 Eos % (Auto) 1 Baso % (Auto) 0 Neut # (Auto) 15.2 H Lymph # (Auto) 2.8 [place] # (Auto) 1.2 H Eos # (Auto) 0.1 Baso # (Auto) 0.1 Immature Gran # (Auto) 0.13 H Absolute Nucleated RBC 0.00 Immature Gran % 1 H Nucleated RBC % 0 PT 12.6 H INR 1.2 APTT 27.1 Sodium 140 Potassium 4.1 Chloride 108 H Carbon Dioxide 25.5 Anion Gap 7 BUN 19 Creatinine 0.6 Estim Creat Clear Calc 81.9 eGFR > 60 BUN/Creatinine Ratio 32 H Glucose 120 H Calculated Osmolality 282 Lactic Acid 1.4 Calcium 8.3 Corrected Calcium 8.9 Phosphorus 3.4 Magnesium 2.1 Iron 14 L 19 L TIBC 376 363 Iron Saturation 3 L 5 L Unsat Iron Binding 362 H 344 H Ferritin 41 Total Bilirubin 0.6 AST 47 H ALT 57 H Alkaline Phosphatase 166 H Total Protein 5.5 L Albumin 3.3 L Globulin 2.2 L Albumin/Globulin Ratio 1.5 Impressions Impression: # Anemia blood loss # Pain abdomen # Improving leukocytosis Advance diet Assessment & Plan A&P Narrative # Cirrhosis liver of uncertain etiology may be cryptogenic or LICONA cirrhosis but complete workup for the chronic active hepatitis ordered by me # Chronic anemia with full workup done in April of this year no further evaluation necessary via upper endoscopy or colonoscopy # Leukocytosis of uncertain etiology patient on broad-spectrum antibiotics at the moment # Moderate to severe aortic stenosis # Diabetes mellitus type 2 # Essential hypertension the patient presented this time with hypotension Will follow the patient Time Spent With Patient Time: Total time spent is greater than 50% in coordination of care (as documented) at patient's floor/unit and/or counseling patient:
[2024-07-22] VITALS (7 sets, daily range): BP systolic 113–130; BP diastolic 62–72; PULSE 77–93; RESP 16–18; TEMP 36.3–36.8; O2SAT 95–99
[2024-07-22 03:59] LABS: Hepatitis A Antibody IgM Non Reactive (Non React); Hepatitis B Core Antibody IgM Non Reactive (Non React); Hepatitis B Surface Antigen Non Reactive (Non React); Hepatitis C Antibody Reactive (Non React)
[2024-07-22 04:04] LABS: Hepatitis A Antibody IgM Non Reactive (Non React); Hepatitis B Core Antibody IgM Non Reactive (Non React); Hepatitis B Surface Antigen Non Reactive (Non React); Hepatitis C Antibody Reactive (Non React)
[2024-07-22 06:27] LABS: Basophils # (Auto) 0.1 Thou/mm3 (0.0-0.2); Basophils % (Auto) 0 % (0-2.5); Eosinophils # (Auto) 0.1 Thou/mm3 (0.0-0.5); Eosinophils % (Auto) 0 % (0-10); Hematocrit 27.2 % (36.0-46.0); Immature Granulocytes % (Auto) 0 % (0-0); Immature Granulocytes Auto 0.06 Thou/mm3 (0.00-0.00); Lymphocytes # (Auto) 2.7 Thou/mm3 (1.0-4.8); Lymphocytes % (Auto) 18 % (10-50); Mean Corpuscular HGB Conc 31.3 g/dl (31.0-37.0); Mean Corpuscular Hemoglobin 29.7 pg (25.0-35.0); Mean Corpuscular Volume 95 fL (80-100); Monocytes % (Auto) 7 % (0-12); Neutrophils % (Auto) 74 % (37-80); Nucleated Red Blood Cell % 0 /100 WBC (0); Platelet Count 162 Thou/mm3 (140-440); RDW Standard Deviation 55.8 fL (36.4-46.3); Red Blood Count 2.86 Miln/mm3 (4.00-5.20); White Blood Count 14.8 Thou/mm3 (3.6-11.0)
[2024-07-22 06:36] LABS: Hemoglobin 8.5 g/dL (12.0-16.0)
[2024-07-22 06:46] LABS: Alanine Aminotransferase 52 U/L (10-49); Albumin, Serum 3.5 gm/dL (3.4-4.8); Albumin/Globulin Ratio 1.3 (1.2-2.2); Alkaline Phosphatase 184 U/L (46-116); Anion Gap 9 (7-16); Aspartate Amino Transferase 43 U/L (0-34); BUN/Creatinine Ratio 20 Ratio (12-20); Bilirubin,Total 0.5 mg/dL (0.3-1.2); Blood Urea Nitrogen 10 mg/dL (9-23); Calcium 9.2 mg/dL (8.3-10.6); Calcium (Corrected) 9.6 mg/dL (8.5-10.1); Carbon Dioxide 27.3 mMol/L (20.0-31.0); Chloride 105 mMol/L (98-107); Creatinine (Component) 0.5 mg/dL (0.6-1.3); Estimated Creatinine Clearance 98.3 mL/min (>60); Globulin 2.6 gm/dL (2.3-3.5); Glucose 121 mg/dL (74-106); Osmolality,Calculated 281 (275-295); Sodium 141 mMol/L (136-145); Total Protein 6.1 gm/dL (5.7-8.2); eGFR > 60 See Note
[2024-07-22] MEDS: LACTULOSE SYRUP 20 GM/30 ML UDC PO (09:58)
[2024-07-22] MEDS: metroNIDAZOLE 250 MG TABLET 500 MG PO (09:58)
[2024-07-22] MEDS: PANTOPRAZOLE INJ 40 MG VIAL IV (09:58)
[2024-07-22] MEDS: cefTRIAXone/D5w 1gm IV premix 50 ML IV (09:58)
--- NOTE | 2024-07-22 11:13 | PC.NURSE ---
PATIENT WAS TOLD SHE IS HEPATITIS C POSITIVE. PATIENT IS VERY CONCERNED AND ASKING ABOUT TREATMENT AND PRECAUTIONS WITH FAMILY. PATIENT ALSO HAS A DISCHARGE ORDER. DR RODGERS CALLED AND INFORMED OF PATIENTS CONCERNS AND ASKED IF SOME ONE CAN COME AND TALK TO HER ABOUT IT. STATED WILL COME TO SEE HER.
--- NOTE | 2024-07-22 12:27 | PC.SS ---
SS met with pt who states she does not have preference for HH. Pt states followed up last week with her PCP, Dr. Rosenda Cerna.
--- NOTE | 2024-07-22 14:10 | PC.NURSE ---
DR RODGERS CALLED, PATIENT HAS NOT BEEN SEEN AND CONCERNS ADDRESSED. INFORMED D/C ORDER PLACED THIS MORNING, IS SHE TO BE D/C? [id number] DR KEEN SAW PATIENT, PT CAN BE DISCHARGE.
--- NOTE | 2024-07-22 14:47 | PC.NURSE ---
PATIENT EXPRESSED THIS AM THAT SHE HAS HAD NOSE BLEEDS AND ACTUALLY HAS COUGHED UP BLOOD CLOTS. THIS STARTED ABOUT 2 WEEKS AGO. WENT TO TELL PATIENT SHE MAY GET READY FOR D/C. PPPATIENT HAD ALREADY GOTTEN UP AND DRESSED. PATIENT MOTIONED TO ME TO SEE THAT SHE HAS A NOSE BLEED PRESENTLY. DR KEEN CALLED AND ASKED IF THE TEAM IS AWARE OF HER COMPLAINT OF NOSE BLEEDS AND COUGHING UP LARGE BLOOD CLOTS. WANTED TO VERIFY THEY WERE AWARE BEFORE DISCHARGING HER. DR ASKED IS HE BLEEDING RIGHT NOW INFORMED YES. STATED TO WAIT AND WOULD CALL BACK.
--- NOTE | 2024-07-22 15:37 | ESDS_ITS ---
<Statement entered by Colleen Vera MD - 08/06/24 09:38> I reviewed above note and agree with findings and plans. I have also personally examined the patient with medicine team and went over assessment and plan with medical team including wireless internet installer and resident physician. <Statement entered by Alejandrina Castro MD - 07/22/24 17:37> Patient was seen and examined at bedside. She reported that she had some episodes of nosebleed that sometimes she can feel that her down throat. She denied any trauma she denied using any nasal sprays except normal saline nasal sprays. Patient denied any weakness or dizziness, denied any headache. We informed the patient that her bleeding must be addressed with the ENT specialist which we do not have available here in the facility. Instructed the patient to follow-up as soon as possible with her primary care physician for referral. At this time her hemoglobin is stable at 8.5, culture and sensitivity are negative and her coagulation panel within normal limits. Will discharge the patient on ciprofloxacin and Flagyl and to follow-up with the GI specialist Dr. Leyva on outpatient settings for autoimmune workup and also to follow-up with her hepatitis C treatment plan with her flex o writer operator and PCP. The patient will be given iron supplements on discharge. - Patient's plan and care discussed with my attending, Dr. Chuy Castro MD Internal Medicine PGY-2 Planned Discharge Date 07/22/24 DS: Providers Provider Date of admission: 07/20/24 10:11 Primary care physician: Parvez Cerna MD Admitting Provider: Colleen Vera MD Attending Provider on Admission: Colleen Vera MD Consults: 07/20/24 09:07 Consult to Gastroenterology Stat Comment: Cirrhosis and Varices Consulting Provider: Tasha Leyva Attending Provider on DC: Colleen Vera MD Discharging Provider: Colleen Vera MD DS: Diagnosis Problem List Completed Was Problem List Reviewed/Reconciled?: Yes Hospital Course Hospital Course Hospital course: 69 y/o female with PMHx of HTN, DM, gastroparesis, chronic anemia who is admitted for colitis and evaluation of acute on chronic normocytic anemia. Patient had come into the ED for evaluation of abdominal pain and had stated her stool had been red prior to arrival. Patient arrived to the ED with a blood pressure of 106/56, heart rate of 117. Her urinalysis was negative. CT abdomen pelvis showed no gallbladder no ascites, however showed cirrhosis and possible esophageal varices. Chest x-ray showed no PNA, however her WBC was 27 and HGb was 10 otherwise normal electrolytes, kidney function, and negative troponin. Medicine was consulted and patient was admitted to floors. While on the floors GI was consulted for patient, Dr. Leyva, and had recommended to defer EGD and colonoscopy at the time and to follow-up outpatient as she got full workup in April. Patient also had hepatitis panel done which she had hepatitis C positive antibody. It was repeated once more had showed hepatitis C antibody. Patient was recommended to follow-up outpatient on further workup of hepatitis C, patient denied any fingerstick injuries, tattoos, drug use but did says she got a blood transfusion prior. There was a concern for sepsis at once patient came in and concern for colitis as patient had been experiencing diarrhea. Sepsis was ruled out, however as there was some suspicion for possible C. difficile, we did not run the test because of no recent hospitalizations, or antibiotic use. On discharge we will still treat for colitis, with Cipro and Flagyl which would cover patient if patient were to have symptoms. Patient had experienced a nosebleed while in the floors, and had stopped. Patient did endorse a history of previous nosebleeds, says she has not been able to see an ENT, we recommended her to follow-up with the ENT upon discharge. Patient was recommended to follow-up outpatient with her PCP within 1 week as well upon discharge. Follow up with your PCP within one week from discharge Follow up with your PCP in regards to your Hepatitis C results Follow up with your Gastroenterologiest within one week from discharge Use medications as prescribed In case of worsening of your symptoms please return to the ED as soon as possible Follow up with an ENT doctor to address your nose bleeding #Hepatitis C positive antibody #Chronic diarrhea of unknown source #Epistaxis #Acute on chronic normocytic anemia #Iron deficiency anemia #Sepsis 2/2 suspected colitits, ruled out #Hypotension #Tachycardia #Liver Cirrhosis #Hx of Gastroparesis #Hx of DM type II #Hx of Hypertension #Hx of depression #Migraines Patient seen and care discussed with my senior resident, Dr. Castro , and my attending physician, Dr. Chuy Hernandez, PGY-1 Time Spent with Patient Time attestation: Total time spent providing and/or coordinating discharge services: Time spent: Greater than 30 minutes Exam Vital Signs Temp Pulse Resp BP Pulse Ox O2 Del Method O2 Flow Rate 97.5 F 81 16 129/72 98 Room Air 2 07/22/24 12:00 07/22/24 12:00 07/22/24 12:00 07/22/24 12:00 07/22/24 12:00 07/22/24 12:00 07/22/24 04:00 Narrative Exam General: Well appearing, well nourished, in no distress HEENT: Normocephalic, atraumatic, conjunctiva clear, sclera non-icteric, EOM intact Heart: Regular rate and rhythm, systolic ejection murmur Lungs: Clear to auscultation, no wheezes Abdomen: suprapubic tenderness, soft, non tender. Extremities: No amputations or deformities, cyanosis, edema or varicosities, peripheral pulses intact Neurologic:Moves all extremities spontaneously, no focal neuro deficits, A&Ox3 Psychiatric: Cooperative, normal mood and affect. Discharge Plan Plan Patient Disposition: HOME (Self Care) Care Plan Goals: Follow up with your PCP within one week from discharge Follow up with your PCP in regards to your Hepatitis C results Follow up with your Gastroenterologiest within one week from discharge Use medications as prescribed In case of worsening of your symptoms please return to the ED as soon as possible Follow up with an ENT doctor to address your nose bleeding Prescriptions/Referrals Prescriptions/Med Rec: New ferrous sulfate 325 mg (65 mg iron) Tablet,Delayed Release (Dr/Ec) 325 mg PO QOD 14 Days Qty: 7 0RF metronidazole 500 mg tablet 500 mg PO TID 5 Days Qty: 15 0RF ciprofloxacin HCl 500 mg tablet 500 mg PO BID 5 Days Qty: 10 0RF Continued metoprolol succinate 50 mg Tablet Extended Release 24 Hr 50 mg PO QDAY sumatriptan succinate 25 mg Tablet 25 mg PO Q2H PRN (Reason: Migraine Headache) Rx Instructions: do not exceed 8 doses per 24 hrs losartan 25 mg Tablet 25 mg PO QDAY albuterol sulfate 90 mcg/actuation Hfa Aerosol Inhaler 1 inh INHALATION QID PRN (Reason: Shortness Of Breath) docusate sodium [Colace] 100 mg capsule 100 mg PO BID Qty: 40 0RF furosemide [Lasix] 40 mg tablet 40 mg PO QDAY Qty: 30 0RF gabapentin 300 mg Capsule 300 mg PO DAILY sertraline 25 mg Tablet 25 mg PO QDAY Calcium 600 with Vitamin D3 600 mg-10 mcg (400 unit) Tablet,Chewable 600 tab PO BIDWMEAL Repatha Syringe 140 mg/mL Syringe 140 mg SUBCUT Jardiance 25 mg tablet 25 mg PO QDAY Patient Comments: TOME ZACKERY TABLETA POR V A ORAL CADA MA STEPHANIE Ozempic 0.25 mg or 0.5 mg(2 mg/1.5 mL) pen injector 0.5 mg SUBCUT QWEEK Patient Comments: INJECT 0.5MG UNDER THE SKIN ONCE A WEEK metformin 1,000 mg Tablet 1,000 mg PO QDAY Hold Instructions: Resume on 05/08/24. Empieze a to mar maximus medicamento nuevamente en maximus sarai a matthew hora habitual. Held famotidine 40 mg Tablet 40 mg PO QDAY Hold Instructions: Resume on 07/29/24. Referrals: Parvez Cerna MD [Primary Care Provider] - Patient/Caregiver Discharge Instructions Discharge Activity: activity as tolerated Education Materials: Abdominal Pain, Understanding Hepatitis C (HCV), Treating Hepatitis C (HCV), Anatomy of the Digestive System, Sepsis, What to Know About Hepatitis C ..., Hepatitis C: Preventing the Spread, Hepatitis C: Protecting Your Liver, Hepatitis C: Know the Facts, Understanding Colitis Print Language: Irish Stand Alone Forms: Ramona Award Info., Patient Portal Info Letter Discharge Order Discharge Orders: Discharge (Routine); Ordered 07/22/24 Ordered By: Mora Hernandez Quality Discharge Quality Measures VTE prophylaxis (SCDs)
--- NOTE | 2024-07-22 18:36 | PD.IMPROG ---
Documentation for date of: 07/22/24 Subjective Subjective Interval history: Late entry for the note Patient evaluated Okay to discharge patient home as a hemoglobin hematocrit stabilized on 8.5 and 27.2 No need for invasive GI workup Improving leukocytosis Exam Vital Signs Temp Pulse Resp BP Pulse Ox O2 Del Method O2 Flow Rate 98.2 F 93 17 124/66 95 Room Air 2 07/22/24 16:00 07/22/24 16:00 07/22/24 16:00 07/22/24 16:00 07/22/24 16:00 07/22/24 16:00 07/22/24 04:00 Objective Labs 07/22/24 05:32 07/22/24 05:32 Labs: Laboratory Results - last 24 hr 07/20/24 07/21/24 07/22/24 17:50 05:20 05:32 WBC 14.8 H RBC 2.86 L Hgb 8.5 L Hct 27.2 L MCV 95 MCH 29.7 MCHC 31.3 RDW Std Deviation 55.8 H Plt Count 162 Neut % (Auto) 74 Lymph % (Auto) 18 [place] % (Auto) 7 Eos % (Auto) 0 Baso % (Auto) 0 Neut # (Auto) 11.0 H Lymph # (Auto) 2.7 [place] # (Auto) 1.0 H Eos # (Auto) 0.1 Baso # (Auto) 0.1 Immature Gran # (Auto) 0.06 H Absolute Nucleated RBC 0.00 Immature Gran % 0 Nucleated RBC % 0 Sodium 141 Potassium 4.0 Chloride 105 Carbon Dioxide 27.3 Anion Gap 9 BUN 10 Creatinine 0.5 L Estim Creat Clear Calc 98.3 eGFR > 60 BUN/Creatinine Ratio 20 Glucose 121 H Calculated Osmolality 281 Calcium 9.2 Corrected Calcium 9.6 Total Bilirubin 0.5 AST 43 H ALT 52 H Alkaline Phosphatase 184 H Total Protein 6.1 Albumin 3.5 Globulin 2.6 Albumin/Globulin Ratio 1.3 Tumor Marker AFP 4.20 Hepatitis A IgM Ab Non Reactive Non Reactive Hep Bs Antigen Non Reactive Non Reactive Hep B Core IgM Ab Non Reactive Non Reactive Hepatitis C Antibody Reactive A Reactive A Impressions Impression: # Anemia blood loss stable at the moment # Leukocytosis improving Okay to be discharged patient home She can be followed by the PCP Assessment & Plan A&P Narrative # Cirrhosis liver of uncertain etiology may be cryptogenic or LICONA cirrhosis but complete workup for the chronic active hepatitis ordered by me # Chronic anemia with full workup done in April of this year no further evaluation necessary via upper endoscopy or colonoscopy # Leukocytosis of uncertain etiology patient on broad-spectrum antibiotics at the moment # Moderate to severe aortic stenosis # Diabetes mellitus type 2 # Essential hypertension the patient presented this time with hypotension Will follow the patient Time Spent With Patient Time: Total time spent is greater than 50% in coordination of care (as documented) at patient's floor/unit and/or counseling patient:
[2024-08-01 06:23] LABS: ANA Screen, IFA NEGATIVE (NEGATIVE); Alpha-1-Antitrypsin* 183 mg/dL (83-199); Ceruloplasmin* 25 mg/dL (14-48); Copper* 115 mcg/dL (70-175); Mitochondrial Ab NEGATIVE (NEGATIVE)
== END 2024-07-22 15:48 | disposition home or self-care (01) | DRG 373 ==
LOC: SERX 09:12 → SERHOLD 11:33 → S3SX 12:52
PROVIDERS: Specialist; Admitting Provider Internal Medicine; Emergency Provider Emergency Medicine; PCP Family Medicine; Visit Provider Internal Medicine
DX: A04.9 Bacterial intestinal infection, unspecified (principal); I35.0 Nonrheumatic aortic (valve) stenosis; I10 Essential (primary) hypertension; K74.60 Unspecified cirrhosis of liver; D50.0 Iron deficiency anemia secondary to blood loss (chronic); K43.9 Ventral hernia without obstruction or gangrene; I95.9 Hypotension, unspecified; R09.02 Hypoxemia; E11.9 Type 2 diabetes mellitus without complications; F32.A Depression, unspecified; G43.909 Migraine, unspecified, not intractable, without status migrainosus; B19.20 Unspecified viral hepatitis C without hepatic coma; R04.0 Epistaxis; E11.43 Type 2 diabetes mellitus with diabetic autonomic (poly)neuropathy; K31.84 Gastroparesis
CPT/HCPCS: 36415; 71045; 74176; 80053; 80074; 81001; 82103; 82105; 82150; 82390; 82525; 82728; 83540; 83550; 83605; 83690; 83735; 83880; 84100; 84145; 84484; 85025; 85610; 85652; 85730; 86038; 86140; 86255; 86850; 86900; 86901; 87040; 93005; 93225; 96361; 96365; 96375; 96376; 99285; J0696; J2405; J2470; J2543; J2765; J3490; J7030; J7050; Q0162; A9270

== ENCOUNTER → 2024-07-25 | Outpatient (CLI) | payer OTHER, MEDICAID, SELFPAY ==
[2024-07-25 16:40] LABS: Prothrombin Time 11.3 Seconds (9.0-12.2)
[2024-07-25 16:47] LABS: Alanine Aminotransferase 38 U/L (10-49); Albumin, Serum 3.9 gm/dL (3.4-4.8); Alkaline Phosphatase 210 U/L (46-116); Aspartate Amino Transferase 25 U/L (0-34); Bilirubin,Direct 0.2 mg/dL (0.0-0.3); Bilirubin,Total 0.4 mg/dL (0.3-1.2); Total Protein 6.1 gm/dL (5.7-8.2)
[2024-07-25 18:31] LABS: Hepatitis A Antibody IgM Non Reactive (Non React); Hepatitis B Core Antibody IgM Non Reactive (Non React); Hepatitis B Surface Antigen Non Reactive (Non React); Hepatitis C Antibody Reactive (Non React)
[2024-07-25 21:36] LABS: Ferritin 21 ng/mL (7.3-270.7); Total Iron Binding Capacity 423 mcg/dL (250-425)
[2024-07-25 21:46] LABS: Iron 9 mcg/dL (50-170); Percent Iron Saturation 2 % (20-55); Unsaturated Iron Binding 414 (225-295)
[2024-07-30 06:47] LABS: ACTH, Plasma* 6 pg/mL (6-50)
[2024-08-08 07:02] LABS: ANA Screen, IFA NEGATIVE (NEGATIVE); Alpha-1-Antitrypsin* 195 mg/dL (83-199); Ceruloplasmin* 28 mg/dL (14-48); Copper* 132 mcg/dL (70-175); Mitochondrial Ab NEGATIVE (NEGATIVE)
== END | disposition home or self-care (01) ==
LOC: COPL 15:12
PROVIDERS: PCP Family Medicine; Referring Provider Specialist; Visit Provider Specialist
DX: R94.5 Abnormal results of liver function studies (principal)
CPT/HCPCS: 36415; 80074; 80076; 82024; 82103; 82105; 82390; 82525; 82728; 83540; 83550; 85610; 86038; 86255

== ENCOUNTER 2024-08-05 09:30 | Day surgery (SDC) | payer OTHER, MEDICAID, SELFPAY ==
[2024-08-02 15:21] VITALS: BMI 29.9
[2024-08-05] VITALS (8 sets, daily range): BP systolic 109–151; BP diastolic 61–84; PULSE 64–86; RESP 11–20; TEMP 36.6–36.7; O2SAT 92–98; BMI 30.3
[2024-08-05] MEDS: fentaNYL CIT INJ 50 mCg/ML AMP 2ML (ASD USE ONLY) IV (11:49)
[2024-08-05] MEDS: MIDAZOLAM INJ 1 MG/ML VIAL 2 ML (ASD USE ONLY) 2 MG IV (11:49)
[2024-08-05] MEDS: ONDANSETRON INJ 2 MG/ML INJ 2 ML 4 MG IV (11:49)
[2024-08-05] MEDS: DiphenhydrAMINE INJ 50 MG/ML VIAL 25 MG IV (11:49)
== END 2024-08-05 12:55 | disposition home or self-care (01) ==
PROVIDERS: PCP Family Medicine; Referring Provider Specialist; Visit Provider Specialist
PROC: (CPT 43239; principal; 2024-08-05 11:45)
DX: I85.01 Esophageal varices with bleeding (principal); K25.4 Chronic or unspecified gastric ulcer with hemorrhage; K29.61 Other gastritis with bleeding
CPT/HCPCS: 43235; J1200; J2250; J2405; J3010

== ENCOUNTER → 2024-09-02 | Outpatient (CLI) | payer OTHER, MEDICAID, SELFPAY ==
[2024-09-02 16:35] LABS: Basophils # (Auto) 0.1 Thou/mm3 (0.0-0.2); Basophils % (Auto) 1 % (0-2.5); Eosinophils # (Auto) 0.2 Thou/mm3 (0.0-0.5); Eosinophils % (Auto) 2 % (0-10); Hematocrit 36.6 % (36.0-46.0); Hemoglobin 11.2 g/dL (12.0-16.0); Immature Granulocytes % (Auto) 0 % (0-0); Immature Granulocytes Auto 0.03 Thou/mm3 (0.00-0.00); Lymphocytes # (Auto) 2.5 Thou/mm3 (1.0-4.8); Lymphocytes % (Auto) 19 % (10-50); Mean Corpuscular HGB Conc 30.6 g/dl (31.0-37.0); Mean Corpuscular Hemoglobin 28.2 pg (25.0-35.0); Mean Corpuscular Volume 92 fL (80-100); Monocytes # (Auto) 1.1 Thou/mm3 (0.0-0.8); Monocytes % (Auto) 8 % (0-12); Neutrophils # (Auto) 9.2 Thou/mm3 (1.8-7.7); Neutrophils % (Auto) 70 % (37-80); Nucleated Red Blood Cell % 0 /100 WBC (0); Platelet Count 185 Thou/mm3 (140-440); RDW Standard Deviation 57.9 fL (36.4-46.3); Red Blood Count 3.97 Miln/mm3 (4.00-5.20); White Blood Count 13.1 Thou/mm3 (3.6-11.0)
[2024-09-02 16:55] LABS: Alanine Aminotransferase 33 U/L (10-49); Albumin/Globulin Ratio 1.4 (1.2-2.2); Alkaline Phosphatase 214 U/L (46-116); Anion Gap 8 (7-16); Aspartate Amino Transferase 62 U/L (0-34); BUN/Creatinine Ratio 20 Ratio (12-20); Bilirubin,Total 0.9 mg/dL (0.3-1.2); Blood Urea Nitrogen 10 mg/dL (9-23); Calcium 9.2 mg/dL (8.3-10.6); Calcium (Corrected) 9.2 mg/dL (8.5-10.1); Carbon Dioxide 26.4 mMol/L (20.0-31.0); Chloride 106 mMol/L (98-107); Creatinine (Component) 0.5 mg/dL (0.6-1.3); Globulin 2.9 gm/dL (2.3-3.5); Glucose 133 mg/dL (74-106); Osmolality,Calculated 280 (275-295); Sodium 140 mMol/L (136-145); Total Protein 6.9 gm/dL (5.7-8.2); eGFR > 60 See Note
[2024-09-07 03:05] LABS: HCV RNA, PCR <15 NOT DETECTED IU/mL
[2024-09-09 06:38] LABS: HCV Genotype, LiPA(R)* NOT DETECTED; HCV RNA, PCR Log IU <1.18 NOT DETECTED Log IU/mL
== END | disposition home or self-care (01) ==
LOC: COPL 15:52
PROVIDERS: PCP Family Medicine; Referring Provider Specialist; Visit Provider Specialist
DX: A00-B99 Certain infectious and parasitic diseases (principal); K74.60 Unspecified cirrhosis of liver
CPT/HCPCS: 36415; 80053; 85025; 87522; 87902

== ENCOUNTER → 2024-09-12 | Outpatient (CLI) | payer OTHER, MEDICAID, SELFPAY ==
[2024-09-12 13:48] LABS: Basophils # (Auto) 0.1 Thou/mm3 (0.0-0.2); Basophils % (Auto) 1 % (0-2.5); Eosinophils # (Auto) 0.4 Thou/mm3 (0.0-0.5); Eosinophils % (Auto) 3 % (0-10); Hematocrit 39.3 % (36.0-46.0); Hemoglobin 12.2 g/dL (12.0-16.0); Immature Granulocytes % (Auto) 0 % (0-0); Immature Granulocytes Auto 0.03 Thou/mm3 (0.00-0.00); Lymphocytes # (Auto) 2.5 Thou/mm3 (1.0-4.8); Lymphocytes % (Auto) 22 % (10-50); Mean Corpuscular Hemoglobin 28.2 pg (25.0-35.0); Mean Corpuscular Volume 91 fL (80-100); Monocytes # (Auto) 0.9 Thou/mm3 (0.0-0.8); Monocytes % (Auto) 8 % (0-12); Neutrophils # (Auto) 7.4 Thou/mm3 (1.8-7.7); Neutrophils % (Auto) 66 % (37-80); Nucleated Red Blood Cell % 0 /100 WBC (0); Platelet Count 174 Thou/mm3 (140-440); RDW Standard Deviation 56.4 fL (36.4-46.3); Red Blood Count 4.33 Miln/mm3 (4.00-5.20); White Blood Count 11.2 Thou/mm3 (3.6-11.0)
[2024-09-12 14:07] LABS: Alanine Aminotransferase 44 U/L (10-49); Albumin, Serum 3.8 gm/dL (3.4-4.8); Albumin/Globulin Ratio 1.3 (1.2-2.2); Alkaline Phosphatase 195 U/L (46-116); Anion Gap 7 (7-16); Aspartate Amino Transferase 84 U/L (0-34); BUN/Creatinine Ratio 20 Ratio (12-20); Bilirubin,Total 0.8 mg/dL (0.3-1.2); Blood Urea Nitrogen 10 mg/dL (9-23); Calcium 9.6 mg/dL (8.3-10.6); Calcium (Corrected) 9.8 mg/dL (8.5-10.1); Carbon Dioxide 26.9 mMol/L (20.0-31.0); Chloride 108 mMol/L (98-107); Creatinine (Component) 0.5 mg/dL (0.6-1.3); Glucose 115 mg/dL (74-106); Osmolality,Calculated 283 (275-295); Potassium 4.4 mMol/L (3.4-5.1); Sodium 142 mMol/L (136-145); Total Protein 6.8 gm/dL (5.7-8.2); eGFR > 60 See Note
== END | disposition home or self-care (01) ==
LOC: COPL 12:25
PROVIDERS: PCP Family Medicine; Referring Provider Specialist; Visit Provider Family Medicine
DX: I50.32 Chronic diastolic (congestive) heart failure (principal); K57.92 Diverticulitis of intestine, part unspecified, without perforation or abscess without bleeding
CPT/HCPCS: 36415; 80053; 85025

== ENCOUNTER → 2025-03-05 | Outpatient (CLI) | payer OTHER, MEDICAID, SELFPAY ==
[2025-03-05 13:31] LABS: Glucose Estimated Average 151 mg/dL (80-131); Hemoglobin A1C 6.9 % Hgb (4.8-6.0)
[2025-03-05 13:36] LABS: Alanine Aminotransferase 47 U/L (10-49); Albumin, Serum 3.5 gm/dL (3.4-4.8); Albumin/Globulin Ratio 1.5 (1.2-2.2); Alkaline Phosphatase 163 U/L (46-116); Anion Gap 8 (7-16); Aspartate Amino Transferase 42 U/L (0-34); BUN/Creatinine Ratio 22 Ratio (12-20); Bilirubin,Total 0.6 mg/dL (0.3-1.2); Blood Urea Nitrogen 13 mg/dL (9-23); Calcium 8.2 mg/dL (8.3-10.6); Calcium (Corrected) 8.6 mg/dL (8.5-10.1); Carbon Dioxide 21.8 mMol/L (20.0-31.0); Cardiac Risk Estimate 2.6 RATIO (3.7-5.6); Chloride 113 mMol/L (98-107); Cholesterol 131 mg/dL (132-200); Creatinine (Component) 0.6 mg/dL (0.6-1.3); Globulin 2.3 gm/dL (2.3-3.5); Glucose 116 mg/dL (74-106); HDL Cholesterol 51 mg/dL (40-60); LDL Cholesterol,Calculated 65 mg/dL (0-130); Osmolality,Calculated 286 (275-295); Potassium 3.9 mMol/L (3.4-5.1); Sodium 143 mMol/L (136-145); Thyroid Stimulating Hormone 0.59 uIU/mL (0.55-4.78); Total Protein 5.8 gm/dL (5.7-8.2); Triglycerides 75 mg/dL (30-150); eGFR > 60 See Note
== END | disposition home or self-care (01) ==
LOC: COPL 12:01
PROVIDERS: PCP Family Medicine; Referring Provider Internal Medicine Cardiovascular Disease; Visit Provider Family Medicine
DX: E11.59 Type 2 diabetes mellitus with other circulatory complications (principal); E78.2 Mixed hyperlipidemia; E03.9 Hypothyroidism, unspecified; I10 Essential (primary) hypertension
CPT/HCPCS: 36415; 80053; 80061; 83036; 84443

== ENCOUNTER → 2025-03-13 | Outpatient (CLI) | payer OTHER, MEDICAID, SELFPAY ==
--- NOTE | 2025-03-13 14:30 | XR_ITS ---
Examination: Bone densitometry Date and time of exam:March 13, 2025 1432 hours INDICATIONS: Menopause age 42 calcium 8 months Technique: Lumbar spine and hip total bone mineralization values of an calculated. Peak reference and age match control results have been displayed. Findings: Lumbar spine total bone mineralization is0.738 gm/cm2. This is 2.2 standard deviations below peak reference. This is 0.2 standard deviations below age-matched controls. Hip total bone mineralization is 0.740 gm/cm2 This is 1.7 standard deviations below peak reference. This is 0.1 standard deviations below age-matched controls Impression: There is osteopenia based on lumbar spine measurements. There is osteoporosis based on hip measurements Lumbar mineralization is decreased 1.5% compare with December 19, 2022 Hip mineralization is increase 0.3% compared with December 19, 2022
== END | disposition home or self-care (01) ==
PROVIDERS: PCP Family Medicine; Referring Provider Family Medicine; Visit Provider Family Medicine
DX: M85.88 Other specified disorders of bone density and structure, other site (principal); M81.0 Age-related osteoporosis without current pathological fracture
CPT/HCPCS: 77080

== ENCOUNTER → 2025-04-02 | Outpatient (CLI) | payer OTHER, MEDICAID, SELFPAY ==
[2025-04-02 09:45] LABS: Misc Send Out* See Sep Rpt
[2025-04-02 10:44] LABS: INR 1.1 (0.9-1.3); Prothrombin Time 12.1 Seconds (9.0-12.2)
[2025-04-02 10:45] LABS: Basophils # (Auto) 0.0 Thou/mm3 (0.0-0.2); Basophils % (Auto) 0 % (0-2.5); Eosinophils # (Auto) 0.0 Thou/mm3 (0.0-0.5); Eosinophils % (Auto) 0 % (0-10); Hematocrit 30.0 % (36.0-46.0); Hemoglobin 9.3 g/dL (12.0-16.0); Immature Granulocytes Auto 0.06 Thou/mm3 (0.00-0.00); Lymphocytes # (Auto) 2.8 Thou/mm3 (1.0-4.8); Lymphocytes % (Auto) 19 % (10-50); Mean Corpuscular HGB Conc 31.0 g/dl (31.0-37.0); Mean Corpuscular Hemoglobin 25.1 pg (25.0-35.0); Mean Corpuscular Volume 81 fL (80-100); Monocytes # (Auto) 0.9 Thou/mm3 (0.0-0.8); Monocytes % (Auto) 6 % (0-12); Neutrophils # (Auto) 10.5 Thou/mm3 (1.8-7.7); Neutrophils % (Auto) 74 % (37-80); Nucleated Red Blood Cell # 0.00 Thou/mm3 (0.00-0.00); Nucleated Red Blood Cell % 0 /100 WBC (0); Platelet Count 110 Thou/mm3 (140-440); RDW Standard Deviation 50.4 fL (36.4-46.3); Red Blood Count 3.70 Miln/mm3 (4.00-5.20); White Blood Count 14.3 Thou/mm3 (3.6-11.0)
[2025-04-02 11:00] LABS: Alanine Aminotransferase 62 U/L (10-49); Albumin, Serum 3.4 gm/dL (3.4-4.8); Albumin/Globulin Ratio 1.7 (1.2-2.2); Alkaline Phosphatase 173 U/L (46-116); Anion Gap 10 (7-16); Aspartate Amino Transferase 67 U/L (0-34); BUN/Creatinine Ratio 42 Ratio (12-20); Bilirubin,Total 0.8 mg/dL (0.3-1.2); Blood Urea Nitrogen 25 mg/dL (9-23); Calcium 9.0 mg/dL (8.3-10.6); Calcium (Corrected) 9.5 mg/dL (8.5-10.1); Carbon Dioxide 25.2 mMol/L (20.0-31.0); Chloride 109 mMol/L (98-107); Creatinine (Component) 0.6 mg/dL (0.6-1.3); Globulin 2.0 gm/dL (2.3-3.5); Glucose 102 mg/dL (74-106); Osmolality,Calculated 291 (275-295); Potassium 4.1 mMol/L (3.4-5.1); Sodium 144 mMol/L (136-145); Total Protein 5.4 gm/dL (5.7-8.2); eGFR > 60 See Note
[2025-04-02 11:54] LABS: AFP Non-Pregnant 4.90 ng/mL (<8.10); Hepatitis A Antibody IgM Non Reactive (Non React); Hepatitis B Core Antibody IgM Non Reactive (Non React); Hepatitis B Surface Antigen Non Reactive (Non React); Hepatitis C Antibody Non Reactive (Non React)
[2025-04-04 17:51] LABS: HCV RNA, PCR <15 NOT DETECTED IU/mL; Hepatitis B Virus DNA* NOT DETECTED
[2025-04-08 06:58] LABS: HCV RNA, PCR Log IU <1.18 NOT DETECTED Log IU/mL; Hepatitis B DNA PCR NOT DETECTED Log IU/mL
== END | disposition home or self-care (01) ==
LOC: COPL 09:25
PROVIDERS: PCP Family Medicine; Referring Provider Specialist; Visit Provider Specialist
DX: B18.2 Chronic viral hepatitis C (principal)
CPT/HCPCS: 36415; 80053; 80074; 82105; 85025; 85610; 87517; 87522

== ENCOUNTER → 2025-04-14 | Outpatient (CLI) | payer OTHER, MEDICAID, SELFPAY ==
--- NOTE | 2025-04-14 14:30 | XR_ITS ---
Examination: Abdomen sonogram, Limited Date and time of exam: April 14, 2025 1434 hours INDICATIONS: Chronic hepatitis C diagnosis, cirrhosis diagnosis beginning one year ago Technique: Real-time canales scale transabdominal sonographic images of the upper abdomen obtained. Findings: Absent gallbladder Normal common bile duct 0.3 cm Pancreatic head 3.4 cm Liver 17.8 cm irregular contour fatty infiltration no focal liver lesions Normal hepatopedal portal venous flow Patent IVC IMPRESSION: Normal common bile duct Moderate hepatomegaly primary hepatocellular disease
== END | disposition home or self-care (01) ==
PROVIDERS: PCP Family Medicine; Referring Provider Specialist; Visit Provider Specialist
DX: R16.0 Hepatomegaly, not elsewhere classified (principal)
CPT/HCPCS: 76705

== ENCOUNTER → 2025-06-30 | Outpatient (CLI) | payer OTHER, MEDICAID, SELFPAY ==
--- NOTE | 2025-06-30 14:00 | XR_ITS ---
Examination: Screening digital mammography, bilateral Computer aided detection 3-D breast Tomosynthesis, bilateral Date and time of exam: June 28, 2025, 1350 hours, compared to mammograms dating to November 05, 2024 Indication: Screening Technique: Nonmagnified MLO, CC views of the breasts to been obtained, reconstructed from 3-D Tomosynthesis images. R2 computer aided detection program utilized for evaluation of suspicious masses and/or abnormal calcifications. 3-D Tomosynthesis images obtained. Findings: Scattered areas of fibroglandular density. Benign calcifications. No interval suspicious masses Impression: BI-RADS category II: Benign Findings. Recommend 1 year follow-up mammogram.
[2025-06-30 15:58] LABS: Alanine Aminotransferase 70 U/L (10-49); Albumin, Serum 4.1 gm/dL (3.4-4.8); Albumin/Globulin Ratio 1.6 (1.2-2.2); Alkaline Phosphatase 190 U/L (46-116); Anion Gap 13 (7-16); Aspartate Amino Transferase 138 U/L (0-34); BUN/Creatinine Ratio 23 Ratio (12-20); Bilirubin,Total 0.9 mg/dL (0.3-1.2); Blood Urea Nitrogen 16 mg/dL (9-23); Calcium 9.0 mg/dL (8.3-10.6); Calcium (Corrected) 9.0 mg/dL (8.5-10.1); Carbon Dioxide 29.6 mMol/L (20.0-31.0); Chloride 98 mMol/L (98-107); Creatinine (Component) 0.7 mg/dL (0.6-1.3); Globulin 2.5 gm/dL (2.3-3.5); Glucose 114 mg/dL (74-106); Osmolality,Calculated 283 (275-295); Phosphorous 2.5 mg/dL (2.4-5.1); Potassium 3.4 mMol/L (3.4-5.1); Sodium 141 mMol/L (136-145); Total Protein 6.6 gm/dL (5.7-8.2); eGFR > 60 See Note
[2025-06-30 16:01] LABS: Basophils # (Auto) 0.1 Thou/mm3 (0.0-0.2); Basophils % (Auto) 1 % (0-2.5); Eosinophils # (Auto) 0.2 Thou/mm3 (0.0-0.5); Eosinophils % (Auto) 1 % (0-10); Hematocrit 30.5 % (36.0-46.0); Hemoglobin 9.1 g/dL (12.0-16.0); Immature Granulocytes Auto 0.06 Thou/mm3 (0.00-0.00); Lymphocytes # (Auto) 3.2 Thou/mm3 (1.0-4.8); Lymphocytes % (Auto) 19 % (10-50); Mean Corpuscular HGB Conc 29.8 g/dl (31.0-37.0); Mean Corpuscular Hemoglobin 22.8 pg (25.0-35.0); Mean Corpuscular Volume 76 fL (80-100); Monocytes # (Auto) 1.5 Thou/mm3 (0.0-0.8); Monocytes % (Auto) 9 % (0-12); Neutrophils # (Auto) 12.0 Thou/mm3 (1.8-7.7); Neutrophils % (Auto) 71 % (37-80); Nucleated Red Blood Cell # 0.00 Thou/mm3 (0.00-0.00); Nucleated Red Blood Cell % 0 /100 WBC (0); Platelet Count 121 Thou/mm3 (140-440); RDW Standard Deviation 51.5 fL (36.4-46.3); Red Blood Count 3.99 Miln/mm3 (4.00-5.20); White Blood Count 17.1 Thou/mm3 (3.6-11.0)
[2025-06-30 16:10] LABS: AFP Non-Pregnant 6.10 ng/mL (<8.10)
[2025-07-04 03:07] LABS: HCV RNA, PCR <15 NOT DETECTED IU/mL
[2025-07-07 07:04] LABS: HCV RNA, PCR Log IU <1.18 NOT DETECTED Log IU/mL
== END | disposition home or self-care (01) ==
LOC: CDIM 13:44 → COPL 14:40
PROVIDERS: PCP Family Medicine; Referring Provider Internal Medicine Cardiovascular Disease; Visit Provider Radiology Diagnostic Radiology
DX: Z12.31 Encounter for screening mammogram for malignant neoplasm of breast (principal); R92.8 Other abnormal and inconclusive findings on diagnostic imaging of breast; R92.323 Mammographic fibroglandular density, bilateral breasts; K71.51 Toxic liver disease with chronic active hepatitis with ascites; R14.0 Abdominal distension (gaseous); R11.0 Nausea
CPT/HCPCS: 36415; 77063; 77067; 80053; 82105; 84100; 85025; 87522

== ENCOUNTER 2025-07-22 14:54 | Emergency (ER) | payer OTHER, MEDICAID, SELFPAY ==
[2025-07-22 15:29] VITALS: BP 131/72; PULSE 97; RESP 18; TEMP 37.3; O2SAT 95; BMI 32.9
--- NOTE | 2025-07-22 15:46 | XR_ITS ---
Examination: Knee, right, 3 views Technique: Knee AP, lateral, oblique 3 views Date and time of exam: July 22, 2025, 1600 hours, comparison none INDICATIONS: Patient fell 2 years ago with injury of the knee, persistent knee pain. FINDINGS: Severe osteopenia Mild narrowing medial joint space Minimal osteoarthritis patellofemoral joint No fracture Small knee effusion IMPRESSION: Mild osteoarthritis No fracture
[2025-07-22] MEDS: KETOROLAC INJ 60 MG/2 ML VIAL 30 MG IM (15:51)
--- NOTE | 2025-07-22 15:57 | EDNOTE_ITS ---
<Statement entered by Ava Lopez MD - 07/22/25 17:44> As co-signing physician, I was present and available for consult prn. I concur with the plan and care as documented by the midlevel provider. Lower Extremity Injury RME/HPI General Chief Complaint: Extremity Injury, Lower Stated Complaint: R) KNEE PAIN 05/16 Time Seen by Provider: 07/22/25 14:57 Source: patient Arrival date/time: 07/22/25 14:54 70-year-old female with a history of type 2 diabetes, cirrhosis, CVA, presents to the emergency room with a chief complaint of tenderness to her right knee x 1 day Mode of arrival: ambulatory Limitations: no limitations Related Data Home Medications ?Medication ?Instructions ?Recorded ?Confirmed empagliflozin 25 mg tablet 25 mg PO QDAY 11/17/2207/09 (Jardiance) semaglutide 0.25 mg or 0.5 mg (2 0.5 mg subcut QWEEK 0 11/17/22 08/05/24 mg/1.5 mL) subcutaneous pen injector (Ozempic) metformin 1,000 mg tablet 1,000 mg PO QDAY 07/10/23 albuterol sulfate 90 mcg/actuation 1 inh inhalation QI D PRN Shortness 08/28/23 08/05/24 aerosol inhaler Of Breath metoprolol succinate 50 mg 50 mg PO QDAY 08/28/2307/09 tablet,extended release 24 hr sumatriptan succinate 25 mg tablet 25 mg PO Q2H PRN Mi graine Headache 08/28/23 08/05/24 evolocumab 140 mg/mL subcutaneous See Rx Instructions .Route .COMPLEX 05/06/24 08/05/24 syringe (Repatha Syringe) sertraline 25 mg tablet 25 mg PO QDAY 05/06/2408/05 alendronate 70 mg tablet 70 mg PO QDAY 08/05/2408/05 ferrous sulfate 325 mg (65 mg 325 mg PO QDAY 08/05/24 08/05/24 iron) tablet nitroglycerin 0.4 mg sublingual 0.4 mg buccal DAILY SC N Chest Pain 08/05/24 08/05/24 tablet oxybutynin chloride 10 mg 10 mg PO QDAY 08/05/2408/05 tablet,extended release 24 hr pantoprazole 40 mg tablet,delayed 40 mg PO QDAY 08/05/24 release Previous Rx's ?Medication ?Instructions ?Recorded docusate sodium 100 mg capsule 100 mg PO BID #40 caps 08/29/23 (Colace) Allergies Allergy/AdvReac Type Severity Reaction Status Date / Time morphine Allergy Severe SOB, LOWER Verified 07/22/25 14:58 BP Review of Systems Review of Systems Systems Reviewed: All systems reviewed, normal except as documented Constitutional Constitutional: Reports system reviewed and no additional complaints, except as documented, Denies fatigue, Denies fever(s), Denies headache(s) and Denies weakness Eyes Eyes: Reports system reviewed and no additional complaints, except as documented, Denies blurry vision and Denies change in vision ENT Ears, Nose, Mouth, and Throat: Reports system reviewed and no additional complaints, except as documented, Denies otalgia, Denies headache(s), Denies nasal congestion, Denies throat swelling and Denies vertigo Cardiovascular Cardiovascular: Reports system reviewed and no additional complaints, except as documented, Denies chest pain, Denies dyspnea and Denies dyspnea on exertion Respiratory Respiratory: Reports system reviewed and no additional complaints, except as documented, Denies chest congestion, Denies cough, Denies dyspnea, Denies dyspnea on exertion and Denies wheezing Gastrointestinal Gastrointestinal: Reports system reviewed and no additional complaints, except as documented, Denies abdominal pain, Denies cramping, Denies nausea and Denies vomiting Genitourinary Genitourinary: Reports system reviewed and no additional complaints, except as documented Musculoskeletal Musculoskeletal: Reports system reviewed and no additional complaints, except as documented, Reports arthralgias, Denies back pain, Reports joint swelling and Reports limited range of motion Integumentary/Breasts Skin/Breast: Reports system reviewed and no additional complaints, except as documented and Denies wounds Neurologic Neurologic: Reports system reviewed and no additional complaints, except as documented, Denies confusion, Denies headache(s), Denies lack of coordination, Denies vertigo and Denies weakness Psychiatric Psychiatric: Reports system reviewed and no additional complaints, except as documented, Denies anxiety, Denies confusion, Denies depression, Denies paranoia, Denies suicidal ideation and Denies tactile hallucinations Endocrine Endocrine: Reports system reviewed and no additional complaints, except as documented and Denies fatigue Hematologic/Lymphatic Hematologic/Lymphatic: Reports system reviewed and no additional complaints, except as documented and Denies lymphadenopathy Allergic/Immunologic Allergic/Immunologic: Reports system reviewed and no additional complaints, except as documented, Denies throat swelling, Denies urticaria and Denies wheezing Past Medical History Past Medical History NEUROLOGIC: Negative Neurological Disorders, Cerebrovascular Accident, Transient Ischemic Attacks (TIA), Dementia, Alzheimer's Disease, Parkinson's Disease, Brain Tumor, Meningitis, Seizures, Epilepsy, Multiple Sclerosis, Cerebral Palsy, Amyotrophic Lateral Sclerosis (ALS/Olga Gehrig's), Guillain-Mcclellan Syndrome, Spina Bifida, Paralysis, Peripheral Neuropathy, Shepherd's Palsy, Subdural Hematoma, Migraine, Head Trauma, Spinal Cord Injury or Traumatic Brain Injury CARDIAC: Positive Cardiac Disorders, Heart Murmur, Hypercholesterolemia, Valvular Heart Disease, Edema and Hypertension; Negative Myocardial Infarction, Cardiac Arrhythmia, Atrial Fibrillation, Angina, Coronary Artery Disease, Atherosclerotic Heart Disease, Peripheral Vascular Disease, Aneurysm, Congestive Heart Failure, Congenital Heart Disease, Rheumatic Fever, Cardiomyopathy, Pericarditis, Cellulitis, Deep Vein Thrombosis, Hypotension or Varicose Veins RESPIRATORY: Positive Bronchitis and Pneumonia; Negative Chronic Obstructive Pulmonary Disease (COPD), Asthma, Emphysema, Pulmonary Fibrosis, Tuberculosis, Pulmonary Embolism, Pulmonary Edema or Sleep Apnea GASTROINTESTINAL: Positive Gastrointestinal Disorders, Cirrhosis (MILD), Pancreatitis, Gall Bladder Disease (REMOVED 08/2023), Ulcer, Hiatal Hernia, Hemorrhoids and Obesity; Negative Gastrointestinal Bleed, Esophageal Varices, Cat's Esophagus, Colitis, Diverticulitis, Colorectal Cancer, Irritable Bowel, Crohn's Disease, Obstructive Bowel or Gastroesophageal Reflux Disease GENITOURINARY: Negative Genitourinary Disorders, Renal Disease, Kidney Stones, Polycystic Kidney Disease, Neurogenic Bladder, Inguinal Hernia, Dialysis, Prostate Cancer or Benign Prostatic Hyperplasia REPRODUCTIVE: Positive Previous Pregnancies (5); Negative Endometriosis, Genital Herpes, Gonorrhea, Pelvic Inflammatory Disease, Syphilis, Testicular Cancer or Uterine Prolapse MUSCULOSKELETAL: Positive Musculoskeletal Disorders, Arthritis and Degenerative Disk Disease; Negative Muscular Dystrophy, Myasthenia Gravis, Marfan's Syndrome, Bone Cancer, Rheumatoid Arthritis, Osteoporosis, Gout, Scoliosis, Carpal Tunnel Syndrome, Fibromyalgia, Fractures, Degenerative Joint Disease, Osteomyelitis or Poliovirus ENT: Positive Cataracts; Negative Glaucoma, Blind, Retinal Detachment, Macular Degeneration, Ear Infection, Deafness, Head Trauma or Eye Prosthesis ENDOCRINE: Positive Diabetes Mellitus Type 2; Negative Endocrine Disorders, Diabetes Mellitus Type 1, Hypoglycemia, Hymera's Syndrome, Holden's Disease, Hyperthyroidism, Hypothyroidism, Parathyroid Disease, Pituitary Disease, Systemic Lupus Erythematosus, Syndrome of Inappropriate Antidiuretic Hormone (SIADH), Adrenal Disease or Graves' Disease HEMATOLOGIC: Positive Blood Disorders and Anemia (03/2024); Negative Leukemia, Hemophilia, Thalassemia, Sickle Cell Disease or Clotting Problems PSYCHO/SOCIAL: Positive Depression and Anxiety; Negative Psychiatric Problems, Schizophrenia, Recreational Drug Use, Bipolar Disorder, Behavior Problems, Self-Mutilation, Attention Deficit Disorder, Attention Deficit Hyperactivity Disorder, Depression, Post Traumatic Stress Disorder or Eating Disorder OTHER HISTORY: Positive Hospitalization, Shingles, Falls, Chicken Pox, Measles, Mumps, Cancer and Cervical Cancer; Negative Autoimmune Disease, Down Syndrome, Autism, Developmental Delay, Blood Transfusions, Anesthesia Reactions, Organ Transplant, Chemotherapy, Radiation Therapy, Hyperbaric Therapy, VRSA, Clostridium Difficile, Colorectal Cancer, Lung Cancer, Ovarian Cancer, Prostate Cancer or Testicular Cancer Family History FAMILY HISTORY: Positive Family Cardiac Disorders and Family Surgery; Negative Family Psychiatric Problems, Family Respiratory Disorders, Family Gastrointestinal Problems, Family Cancer or Family Anesthesia Reaction Surgical History SURGICAL: Positive Cardiac Surgery, Angiogram, Eye Surgery (CATARACTS), Abdominal Surgery, Joint Replacement, Hysterectomy and Section; Negative Open Heart Surgery, Coronary Artery Bypass Graft, Valve Replacement, Vascular Surgery, Coronary Stent, Cardiac Catheterization, Pacemaker, Auto Implanted Cardiovert Defib, Carotid Endarterectomy, Endocrine Surgery, Thyroidectomy, Nose Surgery, Oral Surgery, Tonsillectomy, Adenoidectomy, Cochlear Implant, Corneal Transplant, Throat Surgery, Tracheostomy, Gastric Bypass Surgery, Gastrostomy, Bowel Surgery, Nephrectomy, Transurethral Resection, Amputation, Open Reduction Internal Fixation, Arthroscopy, Neurologic Surgery, Brain Shunt, Mastectomy, Lumpectomy, Tubal Ligation, Vasectomy or Organ Transplant Social History SMOKING STATUS: Never smoker SECOND HAND EXPOSURE: No SUBSTANCE USE: does not use OCCUPATION: Housewife. ED Exam General Limitations: Present no limitations General appearance: Present alert and in no apparent distress Head Head exam: Present atraumatic Eye Eye exam: Present normal appearance, PERRL and EOMI ENT ENT exam: Present normal exam, normal oropharynx and mucous membranes moist Neck Neck exam: Present normal inspection, full ROM and trachea midline Chest Chest inspection: Present normal inspection and symmetric chest wall rise Respiratory Respiratory exam: Present normal lung sounds bilaterally Cardiovascular Cardiovascular exam: Present regular rate, normal rhythm and normal heart sounds Abdominal Exam Abdominal exam: Present soft and normal bowel sounds Extremities Exam Extremities exam: Present normal inspection and full ROM Back Exam Back exam: Present normal inspection and full ROM Neurological Exam Neurological exam: Present alert, oriented X3 and CN II-XII intact Psychiatric Psychiatric exam: Present normal affect and normal mood Skin Skin exam: Present warm, dry, intact and normal color Course Quality Measures none Orders Category Date Time Status XR knee RT 3V Stat Exams 07/22/25 15:46 Completed Ketorolac Inj [Toradol Inj] Med 07/22/25 15:46 Discontinued 30 mg IM X1 ONE Vital Signs Vital signs: Vital Signs Temperature 99.1 F 07/22/25 15:29 Pulse Rate 97 07/22/25 15:29 Respiratory Rate 18 07/22/25 15:29 Blood Pressure 131/72 H 07/22/25 15:29 Pulse Oximetry (%) 95 07/22/25 15:29 Oxygen Delivery Method Room Air 07/22/25 15:29 Extremity Injury, Lower MDM Narrative MDM Narrative:: 70-year-old female with a history of type 2 diabetes, cirrhosis, CVA, presents to the emergency room with a chief complaint of tenderness to her right knee x 1 day Patient is hemodynamically stable and in no apparent distress Physical examination shows tenderness to the patient's right knee. Patient states she is having difficulty walking on it. Patient denies any trauma there is no swelling or erythema. X-ray of the knee was completed and was negative for any acute fracture. There is a small knee effusion and the x-ray results show mild osteoarthritis Patient was discharged and educated to follow-up with primary care provider in the next 24 to 48 hours and return to the emergency room for any evidence of worsening signs or symptoms Patient data External records reviewed:: [facility] previous records Clinical information provided by:: patient Social determinants that could affect healthcare access:: none Patient has the following chronic illnesses:: Diabetes How is presenting disease/condition affected by chronic disease/condition?: uneffected by Evaluation data The following diagnostics were reviewed and interpreted by me:: lab results and radiology exam(s) Lab and/or radiology exams considered but not ordered:: Labs and radiology exams considered and ordered Interpretation Summary: X-ray knee-FINDINGS: Severe osteopenia Mild narrowing medial joint space Minimal osteoarthritis patellofemoral joint No fracture Small knee effusion IMPRESSION: Mild osteoarthritis No fracture Medications / Prescriptions Medications or Prescriptions considered but not ordered:: Medication given Medication administrations:: Medication Administration History Discontinued Medications Ketorolac Tromethamine (Ketorolac Inj 60 Mg/2 Ml Vial) 30 mg IM X1 ONE Stop: 07/22/25 15:47 Last Admin: 07/22/25 15:51 Dose: 30 mg Documented By: OA Medication given Consultations Consultation(s) initiated? (list below): No Diagnosis Extremity Injury, Lower Differential Diagnosis: acute internal derangement of knee and other (Right knee sprain/osteoarthritis of the knee) Most likely diagnosis given after review of the tests above:: Osteoarthritis of the knee Admission Indicated Admission indicated?: not indicated Admission Request Was there a request for admission?: No Disposition Plan Disposition Plan: Discharge Discharge Attestation Discharge Attestation: The patient and all family members were given an opportunity to ask questions and understood the discharge instructions. Discharge instructions specifically effects, indications for sooner follow up or return to the emergency department, and the expected course of current diagnosis. Patient condition: Stable Discharge Plan Plan Patient Disposition: HOME (Self Care) Discharge Disposition comment: Stable Prescriptions/Referrals Prescriptions/Med Rec: No Action metoprolol succinate 50 mg Tablet Extended Release 24 Hr 50 mg PO QDAY sumatriptan succinate 25 mg Tablet 25 mg PO Q2H PRN (Reason: Migraine Headache) Rx Instructions: do not exceed 8 doses per 24 hrs albuterol sulfate 90 mcg/actuation Hfa Aerosol Inhaler 1 inh INHALATION QID PRN (Reason: Shortness Of Breath) docusate sodium [Colace] 100 mg capsule 100 mg PO BID Qty: 40 0RF sertraline 25 mg Tablet 25 mg PO QDAY Repatha Syringe 140 mg/mL Syringe See Rx Instructions .ROUTE .COMPLEX Rx Instructions: 140 mg subcutaneously ;once biweekly Jardiance 25 mg tablet 25 mg PO QDAY Patient Comments: EMILIA KATHLEEN POR V A ORAL CADA MA STEPHANIE Ozempic 0.25 mg or 0.5 mg(2 mg/1.5 mL) pen injector 0.5 mg SUBCUT QWEEK Patient Comments: INJECT 0.5MG UNDER THE SKIN ONCE A WEEK metformin 1,000 mg Tablet 1,000 mg PO QDAY oxybutynin chloride 10 mg tablet extended release 24hr 10 mg PO QDAY Patient Comments: TAKE 1 TABLET (10 MG) BY ORAL ROUTE ONCE DAILY FOR OVERACTIVE BLADDER alendronate 70 mg tablet 70 mg PO QDAY Patient Comments: PLEASE SEE ATTACHED FOR DETAILED DIRECTIONS pantoprazole 40 mg tablet,delayed release (DR/EC) 40 mg PO QDAY Patient Comments: TOME 1 TABLETA POR V A ORAL TODOS LOS D ferrous sulfate 325 mg (65 mg iron) tablet 325 mg PO QDAY Patient Comments: TOME 1 TABLETA POR V A ORAL TODOS LOS D nitroglycerin 0.4 mg tablet, sublingual 0.4 mg BUCCAL DAILY PRN (Reason: Chest Pain) Patient Comments: PLEASE SEE ATTACHED FOR DETAILED DIRECTIONS Referrals: Parvez Cerna MD [Primary Care Provider, Family Practice] - In 1 week Problem List Clinical Impression: Osteoarthritis of knee Patient/Caregiver Discharge Instructions Education Materials: ED Osteoarthritis Additional Instructions: Por favor, comun?quese con chow m?dico de cabecera en las pr?ximas 24 a 48 horas. Chow radiograf?a no mostr? hallazgos agudos. Si presenta alg?n signo o s?ntoma que empeore, regrese a la jazmin de emergencias de inmediato. Print Language: Argentine Stand Alone Forms: Ramona Award Info., Work/School Release, Patient Portal Info Letter PA/ENGINE TESTER Supervising Physician PA/ENGINE TESTER Supervising Physician: Dr. Wall
== END 2025-07-22 18:18 | disposition home or self-care (01) ==
PROVIDERS: Emergency Provider Emergency Medicine; PCP Family Medicine
DX: M17.11 Unilateral primary osteoarthritis, right knee (principal)
CPT/HCPCS: 73562; 96372; 99283; J1885

== ENCOUNTER → 2025-07-25 | Outpatient (CLI) | payer OTHER, MEDICAID, SELFPAY ==
--- NOTE | 2025-07-25 10:00 | XR_ITS ---
Examination: Abdomen sonogram, Limited Date and time of exam: July 25, 2025, 1017 hours INDICATIONS: Diagnosis cirrhosis, chronic hepatitis C Technique: Real-time canales scale transabdominal sonographic images of the upper abdomen obtained. Findings: Absent gallbladder Common bile duct 0.5 cm no stones Pancreatic head 2.5 cm Liver 18.2 cm fatty infiltration irregular contour no focal liver lesions Normal hepatopetal portal venous flow Patent IVC IMPRESSION: Normal common bile duct Moderate hepatomegaly, cirrhosis, no focal liver lesions
== END | disposition home or self-care (01) ==
LOC: CDIM 09:51
PROVIDERS: PCP Family Medicine; Referring Provider Specialist; Visit Provider Specialist
DX: K71.51 Toxic liver disease with chronic active hepatitis with ascites (principal); B18.2 Chronic viral hepatitis C; R16.0 Hepatomegaly, not elsewhere classified
CPT/HCPCS: 76705